=== PATIENT | female | born 1990 | race Caucasian/White ===

== ENCOUNTER 2017-04-16 13:11 | Emergency (ER) | payer MEDICAID, OTHER ==
[~2017-04-16] VITALS: Ht 165.1 cm; Wt 91.0 kg
[~2017-04-16 13:11] MED LIST: PREN0.01 PO
[2017-04-16 13:12] VITALS: BP 143/93; PULSE 90; RESP 20; TEMP 98.7; O2SAT 100
--- NOTE | 2017-04-16 14:19 | PD ---
Physical Exam Time Seen by Provider: 14:17 Narrative 26yo F c/o left sided chest pain and pressure since last night, off and on. Shooting pain to back. Denies pain is worse w/ activity and movement. + dizziness, nausea, lightheadedness, and heart palpitations. Denies SOB. Also c /o of epigastric pain on and off for the past few months. Denies fever. + nausea w/o vomiting of past few months. Patient seen in triage. Awaiting bed placement. VS reviewed. Data Data Last Documented VS Vital Signs Date Time Temp Pulse Resp B/P Pulse Ox O2 Delivery O2 Flow Rate FiO2 04/16/17 13:12 98.7 90 20 143/93 100 Room Air MDM Supervised Visit with DEBBIE: Cristina Monroe Apr 16, 2017 14:19
[2017-04-16] MEDS ORDERED: ONDANSETRON ODT 4 MG TAB PO ONE (15:15)
[2017-04-16] MEDS ORDERED: LIDOCAINE VISCOUS 2% SOLN 15 ML UDC PO ONE (15:15)
[2017-04-16] MEDS ORDERED: ALUMINUM/MAGNESIUM/SIMETH 30 ML CUP PO ONE (15:15)
[2017-04-16 15:16] VITALS: BP 131/76; PULSE 76; RESP 18; O2SAT 99
[2017-04-16 15:30] LABS: AUTOMATED NEUTROPHIL # 7.4 TH/MM3 (1.8-7.7); BASOPHIL % 0.5 % (0.0-2.0); EOSINOPHIL % 0.5 % (0.0-4.0); HEMATOCRIT 40.4 % (35.0-46.0); HEMO FLAGS DIFF FINAL; LYMPH % 19.4 % (9.0-44.0); LYMPHOCYTE # 1.9 TH/MM3 (1.0-4.8); MEAN CORPUSCULAR HEMOGLOBIN 30.5 PG (27.0-34.0); MEAN CORPUSCULAR HGB CONC 34.2 % (32.0-36.0); MONO % 4.5 % (0.0-8.0); NEUT % 75.1 % (16.0-70.0); PLATELET COUNT 300 TH/MM3 (150-450); RED BLOOD COUNT 4.53 MIL/MM3 (4.00-5.30); RED CELL DISTRIBUTION WIDTH 12.8 % (11.6-17.2); WHITE BLOOD COUNT 9.9 TH/MM3 (4.0-11.0)
[2017-04-16 15:38] LABS: APTT (PATIENT) 27.9 SEC (24.3-30.1); INTERNATIONAL NORMALIZED RATIO 0.9 RATIO; PROTHROMBIN TIME - PATIENT 10.2 SEC (9.8-11.6)
--- NOTE | 2017-04-16 15:42 | PD ---
HPI Chief Complaint: Chest Pain Time Seen by Provider: 15:07 Travel History International Travel<30 days: No Contact w/Intl Traveler<30days: No Traveled to known affect area: No History of Present Illness HPI 26-year-old female here with complaint of abdominal pain and chest pain. Over the last several months she has been having epigastric abdominal pain. This is burning in nature. Associated with nausea after food intake, most immediately. No vomiting. She denies any known history of GERD, ulcer, pancreatitis or hepatobiliary pathology. Starting yesterday evening she began to have a pressure in the epigastric region that radiates up into the chest, and slightly into the back. She does feel nauseous but, but again no vomiting. She denies any shortness of breath. No personal or familial history of cardiac disease at young age. No history of prolonged QT syndrome, WPW, Brugada. PFSH Past Medical History Medical History: Denies Significant Hx ?: Not LMP: 2 MOS AGO - ON DEPO SHOT Past Surgical History Eye Surgery: Yes (R[facility] EYE RETINA DETACHMENT AND CORNEA) Social History Alcohol Use: No Tobacco Use: No Substance Use: No Allergies-Medications (Allergen,Severity, Reaction): Coded Allergies: Shellfish (Verified Allergy, Severe, 01/04/11) *MDRO Multi-Drug Resistant Organism (Verified Allergy, 09/24/13) MRSA Uncoded Allergies: MYCINS (Allergy, Severe, REDNESS, 09/24/13) Reported Meds & Prescriptions Reported Meds & Active Scripts Active Reported Vit ( Plus) (Prenat Multivit/[employer]/Iron/Folic Ac) Tab 1 Tab PO DAILY Review of Systems Except as stated in HPI: all other systems reviewed are Neg Physical Exam Narrative GENERAL: Well-appearing female in no acute distress SKIN: Focused skin assessment warm/dry. HEAD: Normocephalic. EYES: No scleral icterus. No injection or drainage. ENT: Mucous membranes pink and moist. NECK: Supple CARDIOVASCULAR: Regular rate and rhythm. No murmur appreciated. RESPIRATORY: No accessory muscle use. Clear to auscultation. Breath sounds equal bilaterally. GASTROINTESTINAL: Abdomen soft, obese, minimal epigastric abdominal tenderness to palpation without rebound or guarding MUSCULOSKELETAL: No obvious deformities. No edema. NEUROLOGICAL: Awake and alert. Normal speech. PSYCHIATRIC: Appropriate mood and affect; insight and judgment normal. Data Data Last Documented VS Vital Signs Date Time Temp Pulse Resp B/P Pulse Ox O2 Delivery O2 Flow Rate FiO2 04/16/17 15:16 76 18 131/76 99 Room Air 04/16/17 13:12 98.7 Orders Electrocardiogram (04/16/17 ) Complete Blood Count With Diff (04/16/17 14:41) Comprehensive Metabolic Panel (04/16/17 14:41) Troponin I (04/16/17 14:41) Prothrombin Time / Inr (Pt) (04/16/17 14:41) Act Partial Throm Time (Ptt) (04/16/17 14:41) Al-Mag Hy-Si 40-40-4 Mg/Ml Liq (Mag-Al P (04/16/17 15:15) Lidocaine 2% Viscous (Xylocaine 2% Visco (04/16/17 15:15) Ondansetron Odt (Zofran Odt) (04/16/17 15:15) Lipase (04/16/17 14:41) Labs Laboratory Tests Test 04/16/17 14:40 White Blood Count 9.9 TH/MM3 Red Blood Count 4.53 MIL/MM3 Hemoglobin 13.8 GM/DL Hematocrit 40.4 % Mean Corpuscular Volume 89.0 FL Mean Corpuscular Hemoglobin 30.5 PG Mean Corpuscular Hemoglobin 34.2 % Concent Red Cell Distribution Width 12.8 % Platelet Count 300 TH/MM3 Mean Platelet Volume 8.6 FL Neutrophils (%) (Auto) 75.1 % Lymphocytes (%) (Auto) 19.4 % Monocytes (%) (Auto) 4.5 % Eosinophils (%) (Auto) 0.5 % Basophils (%) (Auto) 0.5 % Neutrophils # (Auto) 7.4 TH/MM3 Lymphocytes # (Auto) 1.9 TH/MM3 Monocytes # (Auto) 0.4 TH/MM3 Eosinophils # (Auto) 0.0 TH/MM3 Basophils # (Auto) 0.0 TH/MM3 CBC Comment DIFF FINAL Differential Comment Prothrombin Time 10.2 SEC Prothromb Time International 0.9 RATIO Ratio Activated Partial 27.9 SEC Thromboplast Time Sodium Level 141 MEQ/L Potassium Level 3.7 MEQ/L Chloride Level 107 MEQ/L Carbon Dioxide Level 24.9 MEQ/L Anion Gap 9 MEQ/L Blood Urea Nitrogen 8 MG/DL Creatinine 0.81 MG/DL Estimat Glomerular Filtration 86 ML/MIN Rate Random Glucose 75 MG/DL Calcium Level 8.7 MG/DL Total Bilirubin 0.3 MG/DL Aspartate Amino Transf 13 U/L (AST/SGOT) Alanine Aminotransferase 20 U/L (ALT/SGPT) Alkaline Phosphatase 35 U/L Troponin I LESS THAN 0.02 NG/ML Total Protein 7.7 GM/DL Albumin 3.9 GM/DL Lipase 116 U/L MDM Medical Decision Making Medical Screen Exam Complete: Yes Emergency Medical Condition: Yes Medical Record Reviewed: Yes Differential Diagnosis 26-year-old obese female here with several months of burning epigastric abdominal pain worse after food intake with nausea and now radiation up into the chest and low back. Suspect GERD, gastritis versus pancreatitis, hepatobiliary pathology and less likely cardiac etiology Narrative Course Patient placed on monitor, IV established and blood obtained. A twelve-lead EKG shows sinus rhythm with sinus arrhythmia but no notable ST or T-wave abnormalities and normal intervals. Patient given ODT Zofran and GI cocktail. CBC, CMP, lipase, troponin, coags obtained and unremarkable. We'll discharge to home with trial of prescription antacid for presumptive GERD Diagnosis Primary Impression: GERD (gastroesophageal reflux disease) Qualified Code: K21.9 - Gastroesophageal reflux disease without esophagitis Referrals: Primary Care Physician as needed Additional Instructions: Antacid as prescribed. Follow-up with primary care provider if symptoms persist and return to the ER for the warning signs discussed. Med/Other Pt SpecificInfo: Prescription(s) given Scripts Omeprazole 40 Mg Cap40 Mg PO DAILY #30 CAP Ref 0 Prov:Arlene Alvarado MD 04/16/17 Disposition: 01 DISCHARGE HOME Condition: Stable Arlene Alvarado MD Apr 16, 2017 15:42
[2017-04-16 15:49] LABS: ALT (GPT) 20 U/L (10-53); ANION GAP 9 MEQ/L (5-15); AST (GOT) 13 U/L (15-37); BICARBONATE 24.9 MEQ/L (21.0-32.0); BLOOD UREA NITROGEN 8 MG/DL (7-18); CHLORIDE 107 MEQ/L (98-107); GLOMERULAR FILTRATION RATE 86 ML/MIN (>89); POTASSIUM 3.7 MEQ/L (3.5-5.1); SODIUM (NA) 141 MEQ/L (136-145)
[2017-04-16 15:53] LABS: ALKALINE PHOSPHATASE 35 U/L (45-117); TOTAL BILIRUBIN ADULT 0.3 MG/DL (0.2-1.0)
[2017-04-16] MEDS ORDERED: OMEP40CA2 PO (15:57)
--- NOTE | 2017-04-17 17:13 | EKG ---
Date Performed: 04/16/2017 Time Performed: 14:31:22 PTAGE: 26 years EKG: Sinus rhythm WITH MARKED SINUS ARRHYTHMIA BORDERLINE ECG PREVIOUS TRACING : 09/17/2010 20.04 Compared to prior tracing no significant change DOCTOR: Jose Hemphill Interpretating Date/Time 04/17/2017 17:11:55
== END 2017-04-16 16:16 | disposition home or self-care (01) ==
LOC: NEPD 13:11
DX: K21.9 Gastro-esophageal reflux disease without esophagitis (principal); R10.13 Epigastric pain; R11.0 Nausea; E66.9 Obesity, unspecified; I49.8 Other specified cardiac arrhythmias
CPT/HCPCS: 80053; 83690; 84484; 85025; 85610; 85730; 93005; 99284

== ENCOUNTER 2018-12-13 09:53 | Inpatient (IN) ==
--- NOTE | 2018-12-13 10:34 | ED ---
History of Present Illness Primary Care Physician: No Primary Care Physician History of Present Illness: 28 year old female at 38 weeks and 2 days presents with elevated blood pressures. 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 Today when she went to her doctor her pressure was 132/ 110. She endorses a headache, lower extremity edema, blurry vision, Right upper quadrant pain, and nausea for the past two days. She has lower extremity edema for the duration of this . She denies any chest pain, fevers, or vomiting. She denies any loss of fluid, contractions, decreased movement, or vaginal bleeding. She denies any complications with this . Denies any history of high blood pressures. OBGYN history: 2 full term vaginal deliveries; states with her last she was told her pressures were starting to become elevated. No other complications with her . After one of her deliveries she had post hemorrhage. PMH: depression treated up until with [facility]int[employer] (she states she has no SI but has had thoughts of hopelessness and sadness; feels well supported and has someone she feels comfortable going to) SH: none Allergies: Bactrim (hives) Meds: Zantac 150mg BID Weeks Gestation:: 38 Para: 2 : 3 Review of Systems Constitutional: Denies fever(s) Eyes: Reports blurry vision Ears, Nose, Mouth, and Throat: Reports dizziness, Reports headache(s) Cardiovascular: Denies chest pain Respiratory: Denies cough Gastrointestinal: Reports abdominal pain, Reports nausea, Denies vomiting Genitourinary: Denies abnormal vaginal bleeding, Denies painful urination Musculoskeletal: Reports joint swelling Skin/Breast: Denies rash Neurologic: Reports dizziness, Reports headache(s) Psychiatric: Reports depression, Reports hopelessness, Denies thoughts of hurting/killing yourself Endocrine: Denies increased urination Hematologic/Lymphatic: Denies easy bleeding Allergic/Immunologic: Denies hives Medications and Allergies Allergies Allergy/AdvReac Type Severity Reaction Status Date / Time shellfish derived Allergy Severe Anaphylaxis Verified 12/13/18 12:54 MYCINS Allergy Severe REDNESS Uncoded 12/13/18 12:54 *MDRO Multi-Drug Resistant Allergy Unknown Hives Uncoded 12/13/18 12:54 Organism Home Medications Medication Instructions Recorded Confirmed Type vit,[id number] 1 tab PO DAILY 12/13/18 12/13/18 History [PNV 29-1] ranitidine HCl [Zantac] 300 mg PO DAILY 12/13/18 12/13/18 History Active Medications: Active Medications Calcium Gluconate (Calcium Gluconate Inj) 1 gm IV.PUSH PRN PRN PRN Reason: Magnesium toxicity Sodium Chloride (Ns Flush) 2 ml IV.FLUSH BID DEMETRA Sodium Chloride (Ns Flush) 2 ml IV.FLUSH PRN PRN PRN Reason: FLUSH AFTER USING IV ACCESS Exam Vital signs: Vital Signs 12/13/18 10:22 Temperature 99.0 F Narrative: GENERAL: Well-nourished, well-developed patient. SKIN: Warm and dry. HEAD: Normocephalic and atraumatic. EYES: No scleral icterus. No injection or drainage. ENT: No nasal drainage noted. Mucous membranes pink. Airway patent. NECK: Supple, trachea midline. No JVD. CARDIOVASCULAR: Regular rate and rhythm without murmurs, gallops, or rubs. RESPIRATORY: Breath sounds equal bilaterally. No accessory muscle use. BREASTS: Bilateral exam showed no masses , no retractions, no nipple discharge. ABDOMEN/GI: Abdomen soft, tenderness diffusely including RUQ and epigastric area, bowel sounds present, no rebound, no guarding Cervical exam by Dr. Iglesias: 1 cm/30%/-2 FHT's: Category: 1 Baseline: 155 Reactive: yes Variability:moderate Decels: none EXTREMITIES: No cyanosis. 2+ pitting edema. BACK: Nontender without obvious deformity. No CVA tenderness. NEUROLOGICAL: Awake and alert. Motor and sensory grossly within normal limits. Five out of 5 muscle strength in all muscle groups. Normal speech. 3+ patellar reflexes bilaterally Results - Labs CBC & Chem 7: 12/13/18 12:00 12/13/18 12:00 Assessment and Plan - Diagnosis (1) Elevated blood pressure affecting in third trimester, antepartum Code(s): O16.3 - Unspecified maternal hypertension, third trimester Status: Acute (2) Vision blurred Code(s): H53.8 - Other visual disturbances Status: Acute (3) Abdominal pain Code(s): R10.9 - Unspecified abdominal pain Status: Acute (4) Nausea Code(s): R11.0 - Nausea Status: Acute (5) Lower extremity edema Code(s): R60.0 - Localized edema Status: Acute - Plan 28-year-old female at 38 weeks and 2 days presents from clinic for elevated blood pressures. In clinic her blood pressures were 132/110. In ED triage pressure is 152/98 and heart rate in the 100s. Initially baby's heart rate in the 170s. Patient endorses headache, blurry vision, right upper quadrant pain, lower extremity edema, and nausea. 1) gestational hypertension and possible preeclampsia UA-negative protein Protein creatinine ratio 0.2 24-hour protein in 24-hour creatinine Uric acid pending BPs q. 5 minutes heart tracing category 1 reassuring; continue to monitor BPP: 05/29 BRENDAN 12.45 estimated weight 3765g CBC pending CMP pending Patient seen and discussed with Dr. Lawrence Update: BP elevated 168/113. -Will admit to Labor and delivery for induction of labor -Cytotec 25 mg -Mg 4 mg bolus; 2mg/hr Patient seen and discussed with Dr. Iglesias as well. - Attending Attestation Patient seen, examined, and discussed with resident team. I agree with assessment and management as documented and discussed with me. Pt presented to OB ED for evaluation of elevated blood pressures. BPP, labs ordered. BP monitored Q5 minutes. Significant elevation in BP noted, and pt admitted for preeclampsia. Consult placed to OB hospitalist, as pt high risk. Discharge Plan - Physicians Team Primary Care Provider: Primary Care Physici,No Attending Provider: Jeanine Lawrence
[2018-12-13 11:46] LABS: Bacteria,Urine Rare /hpf; Bilirubin,Urine Negative (Negative); Clarity,Urine Cloudy (Clear); Color,Urine Yellow (Yellw/Straw); Glucose,Urine (UA) Negative (Negative); Leukocyte Esterase,Urine Large (Negative); Mucus,Urine Few /lpf (Occasional); Nitrite,Urine Negative (Negative); Specific Gravity,Urine 1.021 (1.002-1.035); Squamous Epithelial Cell,Urine 20 /hpf (0-5)
[2018-12-13 11:54] LABS: Protein/Creatinine Ratio,Urine 0.2 (0.00-0.14); Total Protein,Urine Random 29.7 mg/dL (0-11.8)
[2018-12-13] MEDS ORDERED: Mag Sulf/Water 4 gm/100 ml 100 ML IV.SIG ONE (11:55)
[2018-12-13 12:24] LABS: Hematocrit 35.5 % (35.0-46.0); Mean Corpuscular HGB Conc 33.8 % (32.0-36.0); Mean Corpuscular Volume 85.8 fL (80.0-100.0); Mean Platelet Volume 7.7 fL (7.0-11.0); Platelet Count 344 th/mm3 (150-450); Red Blood Count 4.14 mil/mm3 (4.00-5.30); Red Cell Distribution Width 13.2 % (11.6-17.2); White Blood Count 11.8 th/mm3 (4.0-11.0)
[2018-12-13 12:49] LABS: Albumin 2.6 g/dL (3.4-5.0); Anion Gap 12 meq/L (5-15); Aspartate Aminotransferase 15 U/L (15-37); Blood Urea Nitrogen 8 mg/dL (7-18); Calcium 8.4 mg/dL (8.5-10.1); Carbon Dioxide 20.3 meq/L (21.0-32.0); Chloride 108 meq/L (98-107); Glomerular Filtration Rate Greater Than 89 mL/min (>89); Glucose,Random 72 mg/dL (74-106); Sodium 140 meq/L (136-145); Uric Acid 5.1 mg/dl (2.6-6.0)
[2018-12-13 12:52] LABS: Alanine Aminotransferase 7 U/L (10-53); Alkaline Phosphatase 91 U/L (45-117); Total Protein 6.8 g/dL (6.4-8.2)
--- NOTE | 2018-12-13 13:12 | P.HPOB ---
History of Present Illness Primary Care Physician: No Primary Care Physician History of Present Illness: 28 year old female at 38 weeks and 2 days presents with elevated blood pressures. 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 Today when she went to her doctor her pressure was 132/ 110. She endorses a headache, lower extremity edema, blurry vision, Right upper quadrant pain, and nausea for the past two days. She has lower extremity edema for the duration of this . She denies any chest pain, fevers, or vomiting. She denies any loss of fluid, contractions, decreased movement, or vaginal bleeding. She denies any complications with this . Denies any history of high blood pressures. OBGYN history: 2 full term vaginal deliveries; states with her last she was told her pressures were starting to become elevated. No other complications with her . After one of her deliveries she had post hemorrhage. PMH: depression treated up until with [facility] (she states she has no SI but has had thoughts of hopelessness and sadness; feels well supported and has someone she feels comfortable going to) SH: none Allergies: Bactrim (hives) Meds: Zantac 150mg BID Weeks Gestation:: 38 Para: 2 : 3 Review of Systems Constitutional: Denies fever(s) Eyes: Reports blurry vision Ears, Nose, Mouth, and Throat: Reports dizziness, Reports headache(s) Cardiovascular: Denies chest pain Respiratory: Denies cough Gastrointestinal: Reports abdominal pain, Reports nausea, Denies vomiting Genitourinary: Denies abnormal vaginal bleeding, Denies painful urination Musculoskeletal: Reports joint swelling Skin/Breast: Denies rash Neurologic: Reports dizziness, Reports headache(s) Psychiatric: Reports depression, Reports hopelessness, Denies thoughts of hurting/killing yourself Endocrine: Denies increased urination Hematologic/Lymphatic: Denies easy bleeding Allergic/Immunologic: Denies hives Medications and Allergies Active Medications: Active Medications Calcium Gluconate (Calcium Gluconate Inj) 1 gm IV.PUSH PRN PRN PRN Reason: Magnesium toxicity Sodium Chloride (Ns Flush) 2 ml IV.FLUSH BID DEMETRA Sodium Chloride (Ns Flush) 2 ml IV.FLUSH PRN PRN PRN Reason: FLUSH AFTER USING IV ACCESS Allergies Allergy/AdvReac Type Severity Reaction Status Date / Time shellfish derived Allergy Severe Unverified 06/05/17 14:44 MYCINS Allergy Severe REDNESS Uncoded 09/24/13 05:58 *MDRO Multi-Drug Resistant Allergy Unknown Uncoded 06/05/17 14:44 Organism Exam Vital signs: Vital Signs 12/13/18 10:22 Temperature 99.0 F Narrative: GENERAL: Well-nourished, well-developed patient. SKIN: Warm and dry. HEAD: Normocephalic and atraumatic. EYES: No scleral icterus. No injection or drainage. ENT: No nasal drainage noted. Mucous membranes pink. Airway patent. NECK: Supple, trachea midline. No JVD. CARDIOVASCULAR: Regular rate and rhythm without murmurs, gallops, or rubs. RESPIRATORY: Breath sounds equal bilaterally. No accessory muscle use. BREASTS: Bilateral exam showed no masses , no retractions, no nipple discharge. ABDOMEN/GI: Abdomen soft, tenderness diffusely including RUQ and epigastric area, bowel sounds present, no rebound, no guarding Cervical exam by Dr. Iglesias: 1 cm/30%/-2 FHT's: Category: 1 Baseline: 155 Reactive: yes Variability:moderate Decels: none EXTREMITIES: No cyanosis. 2+ pitting edema. BACK: Nontender without obvious deformity. No CVA tenderness. NEUROLOGICAL: Awake and alert. Motor and sensory grossly within normal limits. Five out of 5 muscle strength in all muscle groups. Normal speech. 3+ patellar reflexes bilaterally Assessment and Plan - Diagnosis (1) Elevated blood pressure affecting in third trimester, antepartum Code(s): O16.3 - Unspecified maternal hypertension, third trimester Status: Acute (2) Vision blurred Code(s): H53.8 - Other visual disturbances Status: Acute (3) Abdominal pain Code(s): R10.9 - Unspecified abdominal pain Status: Acute (4) Nausea Code(s): R11.0 - Nausea Status: Acute (5) Lower extremity edema Code(s): R60.0 - Localized edema Status: Acute - Plan 28-year-old female at 38 weeks and 2 days presents from clinic for elevated blood pressures. In clinic her blood pressures were 132/110. In ED triage pressure is 152/98 and heart rate in the 100s. Initially baby's heart rate in the 170s. Patient endorses headache, blurry vision, right upper quadrant pain, lower extremity edema, and nausea. 1) gestational hypertension and possible preeclampsia UA-negative protein Protein creatinine ratio 0.2 24-hour protein in 24-hour creatinine Uric acid pending BPs q. 5 minutes heart tracing category 1 reassuring; continue to monitor BPP: 05/29 BRENDAN 12.45 estimated weight 3765g CBC pending CMP pending Patient seen and discussed with Dr. Lawrence Update: BP elevated 168/113. -Will admit to Labor and delivery for induction of labor -Cytotec 25 mg -Mg 4 mg bolus; 2mg/hr Patient seen and discussed with Dr. Iglesias as well. Discharge Plan - Discharge Disposition Patient Disposition: ED Admit(ED Internal Use Only) - Physicians Team ED Provider: Jeanine Lawrence Primary Care Provider: Primary Care Tanisha Alva Documented By: Arti Covington MD (Nikki) R1 12/13/18 1031 Signed By: <Electronically signed by Arti MANCUSO (Nikki) R1 Adria> 12/13/18 1214 Patient seen, examined, and discussed with resident team. I agree with assessment and management as documented and discussed with me. Pt presented to OB ED for evaluation of elevated blood pressures. BPP, labs ordered. BP monitored Q5 minutes. Significant elevation in BP noted, and pt admitted for preeclampsia. Consult placed to OB hospitalist, as pt high risk.
[2018-12-13] MEDS: Mag Sulf/Water 40 gm/1000 ml 40 GM/1,000 ML BAG IV.CONT SCH (13:31)
[2018-12-13] MEDS: Acetaminophen 325 MG Tablet PO PRN ×2 (15:35→19:55)
[2018-12-13] MEDS ORDERED: Oxytocin 30 Units/500ml Premix 30 UNITS/500 ML BAG IV.SIG PRN (18:40)
--- NOTE | 2018-12-13 18:59 | P.OBLABOR ---
Subjective Interval history: 28 YO at 38.2 is laboring with Mag sulfate running and her BP has normalized. Cytotec per vagina was administered at 14:30 this afternoon. AROM performed at 16:30 with clear fluid. Cervical check at 18:40 reveals cervix is posterior 3/60/-2 with some change since last check. FHT with Cat 1 tracing with baseline 145, reactive, moderate, no decels. Objective Vital Signs: Vital Signs - 8 hr 12/13/18 13:10 12/13/18 13:15 12/13/18 13:21 Temperature 98.5 F Pulse Rate 89 90 87 Respiratory Rate 18 Blood Pressure 138/79 115/74 127/70 12/13/18 13:31 12/13/18 13:35 12/13/18 13:40 Temperature Pulse Rate 74 74 116 H Respiratory Rate Blood Pressure 110/72 12/13/18 13:55 12/13/18 14:15 12/13/18 14:25 Temperature Pulse Rate 93 H 106 H 92 H Respiratory Rate Blood Pressure 122/65 12/13/18 14:40 12/13/18 14:45 12/13/18 14:50 Temperature Pulse Rate 79 101 H 77 Respiratory Rate Blood Pressure 118/72 12/13/18 14:55 12/13/18 15:23 12/13/18 15:31 Temperature Pulse Rate 81 103 H 71 Respiratory Rate 18 Blood Pressure 116/67 116/71 12/13/18 15:35 12/13/18 15:45 12/13/18 15:50 Temperature Pulse Rate 83 82 77 Respiratory Rate Blood Pressure 12/13/18 15:55 12/13/18 16:10 12/13/18 16:45 Temperature Pulse Rate 76 71 75 Respiratory Rate Blood Pressure 127/75 115/68 12/13/18 16:55 12/13/18 17:05 12/13/18 17:10 Temperature Pulse Rate 86 75 78 Respiratory Rate Blood Pressure 135/65 12/13/18 17:15 12/13/18 17:18 12/13/18 17:20 Temperature 97.5 F L Pulse Rate 81 97 H Respiratory Rate 18 Blood Pressure 12/13/18 17:25 12/13/18 18:05 12/13/18 18:10 Temperature Pulse Rate 118 H 109 H 96 H Respiratory Rate Blood Pressure 128/78 12/13/18 18:15 12/13/18 18:25 Temperature Pulse Rate 111 H 98 H Respiratory Rate Blood Pressure Objective: Pelvic Exam: Cervix: posterior Dilatation: 3 Effacement: 60 Station: -2 Presentation: vtx Membranes: AROM 16:30 hours, clear fluid Uterine Contractions: occasional FHT's: Category: 1 Baseline: 145 Reactive: yes Variability: moderate Decels: absent Assessment and Plan - Diagnosis (1) Elevated blood pressure affecting in third trimester, antepartum Code(s): O16.3 - Unspecified maternal hypertension, third trimester Status: Acute (2) Vision blurred Code(s): H53.8 - Other visual disturbances Status: Acute (3) Abdominal pain Code(s): R10.9 - Unspecified abdominal pain Status: Acute (4) Nausea Code(s): R11.0 - Nausea Status: Acute (5) Lower extremity edema Code(s): R60.0 - Localized edema Status: Acute - Plan 28 YO at 38.2 is laboring with Mag sulfate running and her BP has normalized. Cytotec per vagina was administered at 14:30 this afternoon. AROM performed at 16:30 with clear fluid. Cervical check at 18:40 reveals cervix is posterior 3/60/-2 with some change since last check. FHT with Cat 1 tracing with baseline 145, reactive, moderate, no decels. Currently there are occasional CTX. Pt GBS swab is negative. Induction of Labor -Cytotec 25 mg per vagina once at 14:30 compete -Pitocin per protocol beginning 18:45 hours -LR IVF @ 125 mls/hr -GBS negative -Rubella pending -Cervical check q2-3h -Epidural PRN Pre-eclampsia -Mag sulfate IV per protocol -Tylenol 650 mg q4h PRN -BPP 10/[address] Iglesias
[2018-12-13 19:22] LABS: Rubella IgG Antibody 305.6 IU/mL (10.0-500.0)
--- NOTE | 2018-12-13 23:04 | P.OBLABOR ---
Subjective Interval history: 28 YO at 38.2 weeks on Pitocin mu/ml had IUPC placed at 10:48PM. IUPC had to be placed a second time due to first unit being suboptimal position. Pt is no longer exhibiting pre-eclamptic sxs: BPs are stabilized, mother and infant stable on monitor with Cat 1 tracing and no decels. Will keep Pitocin on for 4 more hours, and if no significant change, will observe uterine rest for 4-6 hours before restarting pitocin. Objective Vital Signs: Vital Signs - 8 hr 12/13/18 15:23 12/13/18 15:31 12/13/18 15:35 Temperature Pulse Rate 103 H 71 83 Respiratory Rate 18 Blood Pressure 116/67 116/71 12/13/18 15:45 12/13/18 15:50 12/13/18 15:55 Temperature Pulse Rate 82 77 76 Respiratory Rate Blood Pressure 127/75 12/13/18 16:10 12/13/18 16:45 12/13/18 16:55 Temperature Pulse Rate 71 75 86 Respiratory Rate Blood Pressure 115/68 12/13/18 17:05 12/13/18 17:10 12/13/18 17:15 Temperature Pulse Rate 75 78 81 Respiratory Rate Blood Pressure 135/65 12/13/18 17:18 12/13/18 17:20 12/13/18 17:25 Temperature 97.5 F L Pulse Rate 97 H 118 H Respiratory Rate 18 Blood Pressure 12/13/18 18:05 12/13/18 18:10 12/13/18 18:15 Temperature Pulse Rate 109 H 96 H 111 H Respiratory Rate Blood Pressure 128/78 12/13/18 18:25 12/13/18 18:40 12/13/18 18:45 Temperature Pulse Rate 98 H 98 H 106 H Respiratory Rate Blood Pressure 12/13/18 19:25 12/13/18 19:30 12/13/18 19:31 Temperature 97.9 F Pulse Rate 101 H 84 Respiratory Rate 18 Blood Pressure 147/86 H 12/13/18 19:54 12/13/18 20:25 12/13/18 21:15 Temperature Pulse Rate 114 H 90 Respiratory Rate 18 Blood Pressure 131/94 H 130/66 12/13/18 21:30 12/13/18 22:25 12/13/18 22:28 Temperature 97.8 F Pulse Rate 77 95 H Respiratory Rate Blood Pressure 143/72 H Objective: Pelvic Exam: Cervix: posterior Dilatation: 3 Effacement: 60 Station: -2 Presentation: vtx Membranes: AROM 14:30 hours with clear fluid 12/13/18 Uterine Contractions: occasional FHT's: Category: 1 Baseline: 145 Reactive: yes Variability: moderate Decels: absent Assessment and Plan - Diagnosis (1) Elevated blood pressure affecting in third trimester, antepartum Code(s): O16.3 - Unspecified maternal hypertension, third trimester Status: Acute (2) Vision blurred Code(s): H53.8 - Other visual disturbances Status: Acute (3) Abdominal pain Code(s): R10.9 - Unspecified abdominal pain Status: Acute (4) Nausea Code(s): R11.0 - Nausea Status: Acute (5) Lower extremity edema Code(s): R60.0 - Localized edema Status: Acute - Plan 28 YO at 38.2 is laboring with Mag sulfate running and her BP has normalized. Cytotec per vagina was administered at 14:30 this afternoon. AROM performed at 16:30 with clear fluid. Cervical check at 18:40 reveals cervix is posterior 3/60/-2 with some change since last check. FHT with Cat 1 tracing with baseline 145, reactive, moderate, no decels. Currently there are occasional CTX. Pt GBS swab is negative. Induction of Labor -Cytotec 25 mg per vagina once at 14:30 compete -Pitocin per protocol 11-23-29 beginning 18:45 hours; will stop at 02:00 on for uterine rest and re-start 06:30 if no significant change -LR IVF @ 125 mls/hr -GBS negative -Rubella pending -Cervical check q2-3h -Epidural PRN -IUPC placed 22:48 hours Pre-eclampsia -Mag sulfate IV per protocol -Tylenol 650 mg q4h PRN -BPP 10/[address] Iglesias
[2018-12-14] MEDS: Acetaminophen 325 MG Tablet PO PRN ×2 (06:40→08:39)
--- NOTE | 2018-12-14 07:58 | P.OBLABOR ---
Subjective Interval history: 28 YO at 38.3 weeks on Pitocin 4 mu/ml restarted around 06:30 this morning after a break at 02:00. Admitted yesterday for IOL due to pre-eclampsia and elevated BPs with Cytotec per vagina at 12:30, AROM 14:30, Pitocin 18:45 yesterday and IUPC placed at 22:48. Mag sulfate started upon admission as well. Today pt is complaining of chest pressure and SOB and ongoing VIRK that is global and she feels is worsening with new tooth pain. Reflexes are normal. Pt is no longer exhibiting pre-eclamptic sxs: BPs are stabilized, mother and infant are stable on monitor with Cat 1 tracing and no decels. Pt is breathing comfortably on RA with no increased WOB with O2 sats >98%. Objective Vital Signs: Vital Signs - 8 hr 12/14/18 00:10 12/14/18 00:53 12/14/18 01:50 Temperature 97.4 F L Pulse Rate 95 H 91 H Respiratory Rate 18 Blood Pressure 130/78 12/14/18 01:55 12/14/18 02:00 12/14/18 03:20 Temperature Pulse Rate 84 77 Respiratory Rate 18 Blood Pressure 117/69 126/57 L 12/14/18 03:23 12/14/18 03:25 12/14/18 05:30 Temperature 97.8 F 97.9 F Pulse Rate 111 H 75 Respiratory Rate 18 18 Blood Pressure 113/62 12/14/18 05:55 12/14/18 06:44 12/14/18 07:25 Temperature Pulse Rate 88 98 H 85 Respiratory Rate 18 Blood Pressure 134/66 Objective: Pelvic Exam: Cervix: posterior Dilatation: 3-4 Effacement: 70 Station: -2 Presentation: vtx Membranes: ARM 14:30 on 12/13/18 with clear fluid Uterine Contractions: q3-4 minutes FHT's: Category: 1 Baseline: 145 Reactive: yes Variability: moderate Decels: absent Assessment and Plan - Diagnosis (1) Elevated blood pressure affecting in third trimester, antepartum Code(s): O16.3 - Unspecified maternal hypertension, third trimester Status: Acute (2) Vision blurred Code(s): H53.8 - Other visual disturbances Status: Acute (3) Abdominal pain Code(s): R10.9 - Unspecified abdominal pain Status: Acute (4) Nausea Code(s): R11.0 - Nausea Status: Acute (5) Lower extremity edema Code(s): R60.0 - Localized edema Status: Acute - Plan 28 YO at 38.2 who presented with new pre-eclampsia is laboring with Mag sulfate and her BP has normalized. Cytotec per vagina was administered at 14:30 this afternoon. AROM performed at 16:30 with clear fluid. Cervix is 3-4/70/-2 with little change since last check. FHT with Cat 1 tracing with baseline 145, reactive, moderate, no decels. CTX q3-4 minutes. Pt GBS swab is negative. Induction of Labor -Cytotec 25 mg per vagina once 14:30 compete -Pitocin per protocol 11-23-29 beginning 18:45 hours; will stop at 02:00 on for uterine rest and re-start 06:30 if no significant change -LR IVF @ 125 mls/hr -GBS negative -Rubella pending -Cervical check q2-3h -Epidural PRN -IUPC placed 22:48 hours Pre-eclampsia -Mag sulfate IV per protocol -Neuro checks q4h -Bed rest -Tylenol 650 mg q4h PRN -BPP 10/10 on 12/13/18 -Mag level this morning Headache, teeth pain, chest pressure -Fentanyl 50 mcg IV once -Pt states pain and pressure easing following fentanyl admin Prolonged rupture of membranes -PCN G 5 million units IV once -PCN G 2.5 million units in [address] Iglesias
[2018-12-14] MEDS ORDERED: Penicillin G Potassium Inj 5,000,000 UNIT in Sodium Chloride 0.9% Inj 100 ML IV.SIG ONE (08:00)
[2018-12-14] MEDS ORDERED: fentaNYL Citrate Inj 100 MCG/2 ML Ampul IV.PUSH ONE ×2 (08:00→12:39)
[2018-12-14] MEDS: Mag Sulf/Water 40 gm/1000 ml 40 GM/1,000 ML BAG IV.CONT SCH (08:44)
[2018-12-14] MEDS ORDERED: Citric Acid/Sodium Citrate Liq 30 ML UDC PO ONE (09:30)
[2018-12-14] MEDS: Prenatal Vit/Ca/Iron/Folic Acid Tablet PO SCH (09:39)
[2018-12-14] MEDS: Famotidine PF Inj 20 MG/2 ML Vial IV.SIG SCH (11:08)
--- NOTE | 2018-12-14 11:21 | P.PN ---
Subjective Interval history: [facility] Attending THe patient is a 28 year-old with IUP at 38.3 being induced for preeclampsia. We discussed the goal of a healthy and healthy mother. We discussed that our primary goal is a vaginal delivery but but that sometimes a delivery is indicated. We discussed the risks of vaginal delivery including lacerations, bleeding/ hemorrhage, and shoulder dystocia. We discussed that shoulder dystocia is unpredictable but she has no indications to recommend delivery. She had an ultrasound yesterday that showed EFW 8 pounds, 5 ounces. Her GDM testing was negative. We discussed the risks of shoulder dystocia that include but are not limited to a approximately 3-5% risk of permanent and irreversible neurological injury. We discussed the indications for section including maternal indications, indications, and emergent indications. The risks, benefits, and alternatives of section were discussed with the patient. The risks include but are not limited to pain, infection, bleeding, injury to other organs like the bladder/bowel/nerves/vessels, injury to the baby, need for repeat operation, need for hysterectomy, need for blood transfusion, wound infection or breakdown , and other possible risks. All the patient's questions were answered and consent had previously been signed. She desires to proceed with a vaginal delivery. Physical Exam Vital signs: Vital Signs 12/13/18 13:10 12/13/18 13:15 12/13/18 13:21 Temperature 98.5 F Pulse Rate 89 90 87 Respiratory Rate 18 Blood Pressure 138/79 115/74 127/70 12/13/18 13:31 12/13/18 13:35 12/13/18 13:40 Temperature Pulse Rate 74 74 116 H Respiratory Rate Blood Pressure 110/72 12/13/18 13:55 12/13/18 14:15 12/13/18 14:25 Temperature Pulse Rate 93 H 106 H 92 H Respiratory Rate Blood Pressure 122/65 12/13/18 14:40 12/13/18 14:45 12/13/18 14:50 Temperature Pulse Rate 79 101 H 77 Respiratory Rate Blood Pressure 118/72 12/13/18 14:55 12/13/18 15:23 12/13/18 15:31 Temperature Pulse Rate 81 103 H 71 Respiratory Rate 18 Blood Pressure 116/67 116/71 12/13/18 15:35 12/13/18 15:45 12/13/18 15:50 Temperature Pulse Rate 83 82 77 Respiratory Rate Blood Pressure 12/13/18 15:55 12/13/18 16:10 12/13/18 16:45 Temperature Pulse Rate 76 71 75 Respiratory Rate Blood Pressure 127/75 115/68 12/13/18 16:55 12/13/18 17:05 12/13/18 17:10 Temperature Pulse Rate 86 75 78 Respiratory Rate Blood Pressure 135/65 12/13/18 17:15 12/13/18 17:18 12/13/18 17:20 Temperature 97.5 F L Pulse Rate 81 97 H Respiratory Rate 18 Blood Pressure 12/13/18 17:25 12/13/18 18:05 12/13/18 18:10 Temperature Pulse Rate 118 H 109 H 96 H Respiratory Rate Blood Pressure 128/78 12/13/18 18:15 12/13/18 18:25 12/13/18 18:40 Temperature Pulse Rate 111 H 98 H 98 H Respiratory Rate Blood Pressure 12/13/18 18:45 12/13/18 19:25 12/13/18 19:30 Temperature 97.9 F Pulse Rate 106 H 101 H Respiratory Rate 18 Blood Pressure 12/13/18 19:31 12/13/18 19:54 12/13/18 20:25 Temperature Pulse Rate 84 114 H Respiratory Rate Blood Pressure 147/86 H 131/94 H 12/13/18 21:15 12/13/18 21:30 12/13/18 22:25 Temperature 97.8 F Pulse Rate 90 77 Respiratory Rate 18 Blood Pressure 130/66 12/13/18 22:28 12/13/18 23:40 12/13/18 23:45 Temperature Pulse Rate 95 H 88 98 H Respiratory Rate Blood Pressure 143/72 H 123/75 12/14/18 00:10 12/14/18 00:53 12/14/18 01:50 Temperature 97.4 F L Pulse Rate 95 H 91 H Respiratory Rate 18 Blood Pressure 130/78 12/14/18 01:55 12/14/18 02:00 12/14/18 03:20 Temperature Pulse Rate 84 77 Respiratory Rate 18 Blood Pressure 117/69 126/57 L 12/14/18 03:23 12/14/18 03:25 12/14/18 05:30 Temperature 97.8 F 97.9 F Pulse Rate 111 H 75 Respiratory Rate 18 18 Blood Pressure 113/62 12/14/18 05:55 12/14/18 06:44 12/14/18 07:25 Temperature Pulse Rate 88 98 H 85 Respiratory Rate 18 Blood Pressure 134/66 12/14/18 07:50 12/14/18 07:53 12/14/18 08:30 Temperature Pulse Rate 86 Respiratory Rate 22 20 Blood Pressure 121/75 12/14/18 09:15 12/14/18 09:38 12/14/18 10:11 Temperature Pulse Rate 90 83 Respiratory Rate 20 10 L 20 Blood Pressure 138/83 128/67 12/14/18 11:15 Temperature Pulse Rate 83 Respiratory Rate 18 Blood Pressure 121/70 Intake & Output 12/13/18 12/14/18 12/14/18 18:59 06:59 18:59 Intake Total 1000 / 1000 1000 / 1000 Balance 1000 / 1000 1000 / 1000 Weight 120.202 kg Intake: IV 1000 / 1000 1000 / 1000 LR 1000 mL Inj 1,000 ML @ 75 1000 / 1000 mls/hr IV.CONT .[id number] [facility] Rx# :[id number] Magnesium Sulfate/Water 40 gm/ 1000 / 1000 1000 ml Premix 40 gm In 1,000 ml @ 2 GM/HR 50 mls/hr IV.CONT Q24H [facility] Rx#:[id number] Other: Weight On Admission 120.202 kg Results - Labs CBC & Chem 7: 12/13/18 12:00 12/13/18 12:00 Laboratory Results - last 24 hr 12/13/18 12/13/18 12/13/18 10:23 10:23 12:00 WBC 11.8 H RBC 4.14 Hgb 12.0 Hct 35.5 MCV 85.8 MCH 29.0 MCHC 33.8 RDW 13.2 Plt Count 344 MPV 7.7 Sodium Potassium Chloride Carbon Dioxide Anion Gap BUN Creatinine Estimated GFR Random Glucose Uric Acid Calcium Magnesium Total Bilirubin AST ALT Alkaline Phosphatase Troponin I Total Protein Albumin Urine Color Yellow Urine Clarity Cloudy H Urine pH 6.0 Ur Specific [place] 1.021 Urine Protein Negative Urine Glucose (UA) Negative Urine Ketones Negative Urine Occult Blood Negative Urine Nitrate Negative Urine Bilirubin Negative Urine Urobilinogen Less than 2 Ur Leukocyte Esterase Large H Urine RBC 3 Urine WBC 2 Ur Squamous Epith Cells 20 Urine Bacteria Rare H Urine Mucus Few H Micro UA Comment Culture not ind Ur Microscopic Review Not Reportable Urine Culture Comments Culture not ind Ur Random Creatinine 147 U Random Total Protein 29.7 H Protein/Creatinin Ratio 0.20 H Nasal Screen MRSA (PCR) Rubella Immunity Screen Rubella Ab, Quant Group B Strep (PCR) 12/13/18 12/13/18 12/13/18 12:00 14:20 14:20 WBC RBC Hgb Hct MCV MCH MCHC RDW Plt Count MPV Sodium 140 Potassium 4.0 Chloride 108 H Carbon Dioxide 20.3 L Anion Gap 12 BUN 8 Creatinine 0.65 Estimated GFR Greater than 89 Random Glucose 72 L Uric Acid 5.1 Calcium 8.4 L Magnesium Total Bilirubin 0.2 AST 15 ALT 7 L Alkaline Phosphatase 91 Troponin I Total Protein 6.8 Albumin 2.6 L Urine Color Urine Clarity Urine pH Ur Specific [place] Urine Protein Urine Glucose (UA) Urine Ketones Urine Occult Blood Urine Nitrate Urine Bilirubin Urine Urobilinogen Ur Leukocyte Esterase Urine RBC Urine WBC Ur Squamous Epith Cells Urine Bacteria Urine Mucus Micro UA Comment Ur Microscopic Review Urine Culture Comments Ur Random Creatinine U Random Total Protein Protein/Creatinin Ratio Nasal Screen MRSA (PCR) Not detected Rubella Immunity Screen Rubella Ab, Quant Group B Strep (PCR) Negative 12/13/18 12/14/18 12/14/18 17:48 07:45 09:15 WBC RBC Hgb Hct MCV MCH MCHC RDW Plt Count MPV Sodium Potassium Chloride Carbon Dioxide Anion Gap BUN Creatinine Estimated GFR Random Glucose Uric Acid Calcium Magnesium 5.4 H Total Bilirubin AST ALT Alkaline Phosphatase Troponin I Less than 0.02 L Total Protein Albumin Urine Color Urine Clarity Urine pH Ur Specific [place] Urine Protein Urine Glucose (UA) Urine Ketones Urine Occult Blood Urine Nitrate Urine Bilirubin Urine Urobilinogen Ur Leukocyte Esterase Urine RBC Urine WBC Ur Squamous Epith Cells Urine Bacteria Urine Mucus Micro UA Comment Ur Microscopic Review Urine Culture Comments Ur Random Creatinine U Random Total Protein Protein/Creatinin Ratio Nasal Screen MRSA (PCR) Rubella Immunity Screen Immune Rubella Ab, Quant 305.6 Group B Strep (PCR)
[2018-12-14] MEDS ORDERED: Penicillin G Potassium Inj 2,500,000 UNIT in Sodium Chlor 0.9% Inj 100 ML IV.SIG SCH (12:00)
[2018-12-14] MEDS ORDERED: fentaNYL 2MCG-Bupiv 0.125% Epi 150 ML EPIDURAL ONE (13:13)
[2018-12-14] MEDS ORDERED: Sodium Chlor 0.9% Inj 10 ML ONE (13:59)
[2018-12-14] MEDS ORDERED: Lidocaaine 1.5%/Epinephrine 1:200,000 PF Inj 5 ML Amp ONE (13:59)
[2018-12-14] MEDS ORDERED: Lidocaine PF 1% Inj 5 ML Vial ONE (13:59)
[2018-12-14] MEDS ORDERED: fentaNYL Citrate Inj 100 MCG/2 ML Ampul ONE (14:00)
--- NOTE | 2018-12-14 14:55 | P.PN ---
Subjective Interval history: [facility] Patient now on oxytocin of 14, contractions every 2 minutes so will decrease oxytocin, feeling increased contractions, SVE 3-4/80/-3, caput noted, adequate contractions. FHR with FHR in 170s with moderate long-term variability, good accels, and no decels. Will monitor closely for chorioamnionitis as now ROM x24 hours. IVF given, and will Rx IV Tylenol. Discussed delivery with patient as little no significant increase in dilation. Will recheck in 1 hour and if no significant cervical change will proceed with delivery unless indicated sooner. Patient in agreement. Physical Exam Vital signs: Vital Signs 12/13/18 14:55 12/13/18 15:23 12/13/18 15:31 Temperature Pulse Rate 81 103 H 71 Respiratory Rate 18 Blood Pressure 116/67 116/71 12/13/18 15:35 12/13/18 15:45 12/13/18 15:50 Temperature Pulse Rate 83 82 77 Respiratory Rate Blood Pressure 12/13/18 15:55 12/13/18 16:10 12/13/18 16:45 Temperature Pulse Rate 76 71 75 Respiratory Rate Blood Pressure 127/75 115/68 12/13/18 16:55 12/13/18 17:05 12/13/18 17:10 Temperature Pulse Rate 86 75 78 Respiratory Rate Blood Pressure 135/65 12/13/18 17:15 12/13/18 17:18 12/13/18 17:20 Temperature 97.5 F L Pulse Rate 81 97 H Respiratory Rate 18 Blood Pressure 12/13/18 17:25 12/13/18 18:05 12/13/18 18:10 Temperature Pulse Rate 118 H 109 H 96 H Respiratory Rate Blood Pressure 128/78 12/13/18 18:15 12/13/18 18:25 12/13/18 18:40 Temperature Pulse Rate 111 H 98 H 98 H Respiratory Rate Blood Pressure 12/13/18 18:45 12/13/18 19:25 12/13/18 19:30 Temperature 97.9 F Pulse Rate 106 H 101 H Respiratory Rate 18 Blood Pressure 12/13/18 19:31 12/13/18 19:54 12/13/18 20:25 Temperature Pulse Rate 84 114 H Respiratory Rate Blood Pressure 147/86 H 131/94 H 12/13/18 21:15 12/13/18 21:30 12/13/18 22:25 Temperature 97.8 F Pulse Rate 90 77 Respiratory Rate 18 Blood Pressure 130/66 12/13/18 22:28 12/13/18 23:40 12/13/18 23:45 Temperature Pulse Rate 95 H 88 98 H Respiratory Rate Blood Pressure 143/72 H 123/75 12/14/18 00:10 12/14/18 00:53 12/14/18 01:50 Temperature 97.4 F L Pulse Rate 95 H 91 H Respiratory Rate 18 Blood Pressure 130/78 12/14/18 01:55 12/14/18 02:00 12/14/18 03:20 Temperature Pulse Rate 84 77 Respiratory Rate 18 Blood Pressure 117/69 126/57 L 12/14/18 03:23 12/14/18 03:25 12/14/18 05:30 Temperature 97.8 F 97.9 F Pulse Rate 111 H 75 Respiratory Rate 18 18 Blood Pressure 113/62 12/14/18 05:55 12/14/18 06:44 12/14/18 07:25 Temperature Pulse Rate 88 98 H 85 Respiratory Rate 18 Blood Pressure 134/66 12/14/18 07:50 12/14/18 07:53 12/14/18 08:30 Temperature Pulse Rate 86 Respiratory Rate 22 20 Blood Pressure 121/75 12/14/18 09:15 12/14/18 09:38 12/14/18 10:11 Temperature Pulse Rate 90 83 Respiratory Rate 20 10 L 20 Blood Pressure 138/83 128/67 12/14/18 11:15 12/14/18 12:10 12/14/18 12:13 Temperature 97.6 F Pulse Rate 83 88 Respiratory Rate 18 18 Blood Pressure 121/70 122/67 12/14/18 13:10 12/14/18 13:26 12/14/18 13:30 Temperature Pulse Rate 91 H 105 H Respiratory Rate 18 22 Blood Pressure 135/74 126/82 12/14/18 13:40 12/14/18 13:46 12/14/18 14:00 Temperature 99.5 F Pulse Rate 99 H 88 Respiratory Rate Blood Pressure 121/81 104/62 12/14/18 14:01 12/14/18 14:15 12/14/18 14:35 Temperature Pulse Rate 88 133 H 96 H Respiratory Rate 18 Blood Pressure 98/51 L 94/62 L 60/20 L Intake & Output 12/13/18 12/14/18 12/14/18 18:59 06:59 18:59 Intake Total 1000 / 1000 1000 / 1000 Balance 1000 / 1000 1000 / 1000 Weight 120.202 kg Intake: IV 1000 / 1000 1000 / 1000 LR 1000 mL Inj 1,000 ML @ 75 1000 / 1000 mls/hr IV.CONT .[id number] [facility] Rx# :[id number] Magnesium Sulfate/Water 40 gm/ 1000 / 1000 1000 ml Premix 40 gm In 1,000 ml @ 2 GM/HR 50 mls/hr IV.CONT Q24H [facility] Rx#:[id number] Other: Weight On Admission 120.202 kg Results - Labs CBC & Chem 7: 12/13/18 12:00 12/13/18 12:00 Laboratory Results - last 24 hr 12/13/18 12/13/18 12/13/18 14:20 14:20 17:48 Magnesium Troponin I Nasal Screen MRSA (PCR) Not detected Rubella Immunity Screen Immune Rubella Ab, Quant 305.6 Group B Strep (PCR) Negative 12/14/18 12/14/18 07:45 09:15 Magnesium 5.4 H Troponin I Less than 0.02 L Nasal Screen MRSA (PCR) Rubella Immunity Screen Rubella Ab, Quant Group B Strep (PCR) Microbiology 12/13/18 14:20 Genital - Genital Region Group B Streptococcus Screen ([facility]) - Preliminary Results Pending
[2018-12-14] MEDS ORDERED: fentaNYL 2MCG-Bupiv 0.125% Epi 150 ML EPIDURAL PRN (15:36)
[2018-12-14] MEDS ORDERED: fentaNYL Citrate Inj 100 MCG/2 ML Ampul EPIDURAL ONE (15:36)
[2018-12-14] MEDS ORDERED: Citric Acid/Sodium Citrate Liq 30 ML UDC PO SCH (15:45)
[2018-12-14] MEDS ORDERED: Morphine Sulfate PF Inj 5 MG/10 ML Ampul ONE (15:46)
[2018-12-14] MEDS ORDERED: CEFAZOLIN ONE (15:53)
[2018-12-14] MEDS ORDERED: Diphtheria/Tetanus/Pertussis Vaccine Inj 0.5 ML Syringe IM ONE (16:00)
[2018-12-14] MEDS ORDERED: ceFAZolin Inj 3,000 MG in Sodium Chlor 0.9% Inj 100 ML IV.SIG SCH (16:00)
[2018-12-14] MEDS ORDERED: Measles/Mumps/Rubella Vaccine Inj 0.5 ML Vial SQ ONE (16:00)
[2018-12-14] MEDS ORDERED: Sodium Chlor 0.9% Inj 100 ML ONE (16:04)
--- NOTE | 2018-12-14 16:04 | P.PN ---
Subjective Interval history: OB[facility] See note of 1607 Physical Exam Vital signs: Vital Signs 12/13/18 16:10 12/13/18 16:45 12/13/18 16:55 Temperature Pulse Rate 71 75 86 Respiratory Rate Blood Pressure 115/68 12/13/18 17:05 12/13/18 17:10 12/13/18 17:15 Temperature Pulse Rate 75 78 81 Respiratory Rate Blood Pressure 135/65 12/13/18 17:18 12/13/18 17:20 12/13/18 17:25 Temperature 97.5 F L Pulse Rate 97 H 118 H Respiratory Rate 18 Blood Pressure 12/13/18 18:05 12/13/18 18:10 12/13/18 18:15 Temperature Pulse Rate 109 H 96 H 111 H Respiratory Rate Blood Pressure 128/78 12/13/18 18:25 12/13/18 18:40 12/13/18 18:45 Temperature Pulse Rate 98 H 98 H 106 H Respiratory Rate Blood Pressure 12/13/18 19:25 12/13/18 19:30 12/13/18 19:31 Temperature 97.9 F Pulse Rate 101 H 84 Respiratory Rate 18 Blood Pressure 147/86 H 12/13/18 19:54 12/13/18 20:25 12/13/18 21:15 Temperature Pulse Rate 114 H 90 Respiratory Rate 18 Blood Pressure 131/94 H 130/66 12/13/18 21:30 12/13/18 22:25 12/13/18 22:28 Temperature 97.8 F Pulse Rate 77 95 H Respiratory Rate Blood Pressure 143/72 H 12/13/18 23:40 12/13/18 23:45 12/14/18 00:10 Temperature Pulse Rate 88 98 H 95 H Respiratory Rate Blood Pressure 123/75 130/78 12/14/18 00:53 12/14/18 01:50 12/14/18 01:55 Temperature 97.4 F L Pulse Rate 91 H 84 Respiratory Rate 18 Blood Pressure 117/69 12/14/18 02:00 12/14/18 03:20 12/14/18 03:23 Temperature 97.8 F Pulse Rate 77 Respiratory Rate 18 18 Blood Pressure 126/57 L 12/14/18 03:25 12/14/18 05:30 12/14/18 05:55 Temperature 97.9 F Pulse Rate 111 H 75 88 Respiratory Rate 18 Blood Pressure 113/62 12/14/18 06:44 12/14/18 07:25 12/14/18 07:50 Temperature Pulse Rate 98 H 85 86 Respiratory Rate 18 Blood Pressure 134/66 121/75 12/14/18 07:53 12/14/18 08:30 12/14/18 09:15 Temperature Pulse Rate 90 Respiratory Rate 22 20 20 Blood Pressure 138/83 12/14/18 09:38 12/14/18 10:11 12/14/18 11:15 Temperature Pulse Rate 83 83 Respiratory Rate 10 L 20 18 Blood Pressure 128/67 121/70 12/14/18 12:10 12/14/18 12:13 12/14/18 13:10 Temperature 97.6 F Pulse Rate 88 91 H Respiratory Rate 18 18 Blood Pressure 122/67 135/74 12/14/18 13:26 12/14/18 13:30 12/14/18 13:40 Temperature Pulse Rate 105 H 99 H Respiratory Rate 22 Blood Pressure 126/82 121/81 12/14/18 13:46 12/14/18 14:00 12/14/18 14:01 Temperature 99.5 F Pulse Rate 88 88 Respiratory Rate Blood Pressure 104/62 98/51 L 12/14/18 14:15 12/14/18 14:35 12/14/18 15:28 Temperature 103.1 F H Pulse Rate 133 H 96 H 153 H Respiratory Rate 18 20 Blood Pressure 94/62 L 60/20 L 107/31 L Intake & Output 12/13/18 12/14/18 12/14/18 18:59 06:59 18:59 Intake Total 1000 / 1000 1000 / 1000 Balance 1000 / 1000 1000 / 1000 Weight 120.202 kg Intake: IV 1000 / 1000 1000 / 1000 LR 1000 mL Inj 1,000 ML @ 75 1000 / 1000 mls/hr IV.CONT .[id number] [facility] Rx# :[id number] Magnesium Sulfate/Water 40 gm/ 1000 / 1000 1000 ml Premix 40 gm In 1,000 ml @ 2 GM/HR 50 mls/hr IV.CONT Q24H [facility] Rx#:[id number] Other: Weight On Admission 120.202 kg Results - Labs CBC & Chem 7: 12/13/18 12:00 12/13/18 12:00 Laboratory Results - last 24 hr 12/13/18 12/13/18 12/13/18 14:20 14:20 17:48 Magnesium Troponin I Nasal Screen MRSA (PCR) Not detected Rubella Immunity Screen Immune Rubella Ab, Quant 305.6 Group B Strep (PCR) Negative 12/14/18 12/14/18 07:45 09:15 Magnesium 5.4 H Troponin I Less than 0.02 L Nasal Screen MRSA (PCR) Rubella Immunity Screen Rubella Ab, Quant Group B Strep (PCR) Microbiology 12/13/18 14:20 Genital - Genital Region Group B Streptococcus Screen ([facility]) - Preliminary Results Pending
--- NOTE | 2018-12-14 16:13 | P.PN ---
Subjective Interval history: OBHG Patient proceeded to develop a temperature of, so IV tylenol administered, clindamycin 900 mg IV ordered, gentamicin 5 mg/kg ordered, and ampicillin 2g ordered. The oxytocin was discontinued as it became clear with the chorioamnionitis that a delivery was indicated as the patient is remote from delivery, has not made significant cervical change, and has been induced for 1-1/2 days. We also discontinue the magnesium sulfate. She has not made significant cervical change despite adequate contractions. A few late appearing decelerations were noted which resolved with IV fluids, oxygen, and repositioning. Unable to give terbutaline due to maternal HR. Cooling blanket ordered. Have prepared for hemorrhage as patient has several risk factors including her history of hemorrhage, prolonged labor, prolonged oxytocin administration, on oxytocin, chorioamnionitis, magnesium sulfate, induction of labor, preeclampsia, and an estimated weight of nearly 8-1/2 pounds. Due to this the decision was made to ensure antibiotics were administered as quickly as possible. Tranexamic acid 1 g was administered prophylactically due to her high risk of a significant hemorrhage as studies have shown this to decrease estimated blood loss during delivery. Also discussed with the patient that she does have an increased risk of hysterectomy and/or other additional procedures due to these risk factors. All the patient and her family's questions were answered and are in agreement with proceeding. Physical Exam Vital signs: Vital Signs 12/13/18 16:10 12/13/18 16:45 12/13/18 16:55 Temperature Pulse Rate 71 75 86 Respiratory Rate Blood Pressure 115/68 12/13/18 17:05 12/13/18 17:10 12/13/18 17:15 Temperature Pulse Rate 75 78 81 Respiratory Rate Blood Pressure 135/65 12/13/18 17:18 12/13/18 17:20 12/13/18 17:25 Temperature 97.5 F L Pulse Rate 97 H 118 H Respiratory Rate 18 Blood Pressure 12/13/18 18:05 12/13/18 18:10 12/13/18 18:15 Temperature Pulse Rate 109 H 96 H 111 H Respiratory Rate Blood Pressure 128/78 12/13/18 18:25 12/13/18 18:40 12/13/18 18:45 Temperature Pulse Rate 98 H 98 H 106 H Respiratory Rate Blood Pressure 12/13/18 19:25 12/13/18 19:30 12/13/18 19:31 Temperature 97.9 F Pulse Rate 101 H 84 Respiratory Rate 18 Blood Pressure 147/86 H 12/13/18 19:54 12/13/18 20:25 12/13/18 21:15 Temperature Pulse Rate 114 H 90 Respiratory Rate 18 Blood Pressure 131/94 H 130/66 12/13/18 21:30 12/13/18 22:25 12/13/18 22:28 Temperature 97.8 F Pulse Rate 77 95 H Respiratory Rate Blood Pressure 143/72 H 12/13/18 23:40 12/13/18 23:45 12/14/18 00:10 Temperature Pulse Rate 88 98 H 95 H Respiratory Rate Blood Pressure 123/75 130/78 12/14/18 00:53 12/14/18 01:50 12/14/18 01:55 Temperature 97.4 F L Pulse Rate 91 H 84 Respiratory Rate 18 Blood Pressure 117/69 12/14/18 02:00 12/14/18 03:20 12/14/18 03:23 Temperature 97.8 F Pulse Rate 77 Respiratory Rate 18 18 Blood Pressure 126/57 L 12/14/18 03:25 12/14/18 05:30 12/14/18 05:55 Temperature 97.9 F Pulse Rate 111 H 75 88 Respiratory Rate 18 Blood Pressure 113/62 12/14/18 06:44 12/14/18 07:25 12/14/18 07:50 Temperature Pulse Rate 98 H 85 86 Respiratory Rate 18 Blood Pressure 134/66 121/75 12/14/18 07:53 12/14/18 08:30 12/14/18 09:15 Temperature Pulse Rate 90 Respiratory Rate 22 20 20 Blood Pressure 138/83 12/14/18 09:38 12/14/18 10:11 12/14/18 11:15 Temperature Pulse Rate 83 83 Respiratory Rate 10 L 20 18 Blood Pressure 128/67 121/70 12/14/18 12:10 12/14/18 12:13 12/14/18 13:10 Temperature 97.6 F Pulse Rate 88 91 H Respiratory Rate 18 18 Blood Pressure 122/67 135/74 12/14/18 13:26 12/14/18 13:30 12/14/18 13:40 Temperature Pulse Rate 105 H 99 H Respiratory Rate 22 Blood Pressure 126/82 121/81 12/14/18 13:46 12/14/18 14:00 12/14/18 14:01 Temperature 99.5 F Pulse Rate 88 88 Respiratory Rate Blood Pressure 104/62 98/51 L 12/14/18 14:15 12/14/18 14:35 12/14/18 15:28 Temperature 103.1 F H Pulse Rate 133 H 96 H 153 H Respiratory Rate 18 20 Blood Pressure 94/62 L 60/20 L 107/31 L Intake & Output 12/13/18 12/14/18 12/14/18 18:59 06:59 18:59 Intake Total 1000 / 1000 1000 / 1000 Balance 1000 / 1000 1000 / 1000 Weight 120.202 kg Intake: IV 1000 / 1000 1000 / 1000 LR 1000 mL Inj 1,000 ML @ 75 1000 / 1000 mls/hr [id number] Rx# :[id number] Magnesium Sulfate/Water 40 gm/ 1000 / 1000 1000 ml Premix 40 gm In 1,000 ml @ 2 GM/HR 50 mls/hr IV.CONT Q24H [facility] Rx#:[id number] Other: Weight On Admission 120.202 kg Results - Labs CBC & Chem 7: 12/13/18 12:00 12/13/18 12:00 Laboratory Results - last 24 hr 12/13/18 12/13/18 12/13/18 14:20 14:20 17:48 Magnesium Troponin I Nasal Screen MRSA (PCR) Not detected Rubella Immunity Screen Immune Rubella Ab, Quant 305.6 Group B Strep (PCR) Negative 12/14/18 12/14/18 07:45 09:15 Magnesium 5.4 H Troponin I Less than 0.02 L Nasal Screen MRSA (PCR) Rubella Immunity Screen Rubella Ab, Quant Group B Strep (PCR) Microbiology 12/13/18 14:20 Genital - Genital Region Group B Streptococcus Screen (ELAN) - Preliminary Results Pending
[2018-12-14] MEDS ORDERED: Lidocaine 2%/Epinephrine 1:200,000 PF 10 ML SDV NERV BLOCK ONE (16:14)
[2018-12-14] MEDS ORDERED: Normosol-R pH 7.4 Inj 1,000 ML IV.CONT ONE (16:14)
[2018-12-14] MEDS ORDERED: Carboprost Tromethamine Inj 250 MCG/ML Ampul IM ONE (16:24)
[2018-12-14] MEDS ORDERED: miSOPROStol 200 MCG Tablet ONE ×2 (16:24→16:33)
[2018-12-14] MEDS: GENTAMICIN IV.SIG SCH (16:30)
[2018-12-14] MEDS: SODIUM CHLOR 0.9% IV.SIG SCH (16:30)
[2018-12-14] MEDS ORDERED: ceFAZolin 1 GM Premix Inj 1 GM/50 ML PIGGYBACK IV.SIG ONE (16:46)
[2018-12-14 16:54] LABS: Cord Arterial Blood HCO3 22.7
[2018-12-14] MEDS ORDERED: Oxytocin 30 Units/500ml Premix 30 UNITS/500 ML BAG ONE (17:06)
[2018-12-14] MEDS ORDERED: Oxytocin 30 Units/500ml Premix 30 UNITS/500 ML BAG IV.CONT PRN (17:26)
[2018-12-14] MEDS ORDERED: Witch Hazel 50%/Glyderin 12.5% 40 Pad Jar RECTAL PRN (17:26)
[2018-12-14] MEDS ORDERED: Bisacodyl 10 MG Supp RECTAL PRN (17:26)
[2018-12-14] MEDS ORDERED: Acetaminophen 325 MG Tablet PO PRN (17:26)
[2018-12-14] MEDS ORDERED: Zolpidem Tartrate 5 MG Tablet PO PRN (17:26)
[2018-12-14] MEDS ORDERED: Naloxone Inj 0.4 MG/ML Vial IV.PUSH PRN ×2 (17:26→23:43)
[2018-12-14] MEDS ORDERED: Benzocaine 20% Top Spray 60 ML Can TOPICAL PRN (17:26)
[2018-12-14] MEDS ORDERED: Oxytocin 30 Units/500ml Premix 30 UNITS/500 ML BAG IV.SIG ONE (17:32)
[2018-12-14] MEDS ORDERED: miSOPROStol 200 MCG Tablet RECTAL ONE (17:32)
[2018-12-14] MEDS ORDERED: Tranexamic Acid Inj 1,000 MG in Sodium Chlor 0.9% Inj 100 ML IV.SIG ONE (17:32)
[2018-12-14] MEDS ORDERED: miSOPROStol 200 MCG Tablet PO ONE (17:32)
--- NOTE | 2018-12-14 17:58 | P.OBDELI ---
Procedure Note Performed by: Dr Anastacia Lees MD Procedure: Primary Low Transverse Section Indication for Delivery: Nonreassuring heart tracing, Maternal medical problems, Other (chorioamnionitis) Informed Consent Obtained: For anesthesia Confirmed Correct: Patient, Procedure, Site, Time-out taken Anesthesia: Epidural Medication Prior to Procedure: Antacids (pepcid), Antibiotics, IV (Penicillin G IV, Gentamicin), Antiemetics (Zofran), Magnesium Sulfate, Other (TXA) Monitoring During Procedure: Blood pressure monitoring, doppler, monitor, Pulse oximetry Urinary Catheter: Inserted using sterile technique Sterile Preparation: In usual fashion, Other (chloraprep) Position: Supine - Operative Features Skin Incision: Pfannenstiel Uterine Incision: Low transverse w/knife / blunt ext Membranes Ruptured: Artificially (12/13/18 @ 14:30hrs) Presentation: Vertex Status of Infant: Viable, Cord blood (sent for blood gas), Nursery present Placenta Delivered: Intact Medications: Antibiotics (Ancef 3 mg and Clindamycin 900 mg IV), Oxytocin ( after placenta was delivered), Prostaglandins (cytotec 800 mg per rectum) Estimated blood loss (mL): 750 Procedure Tolerated: Well Maternal Condition: Stable Baby Condition: Stable Procedure in Detail: 28 YO obese at 38.3 weeks was admitted for pre-eclampsia with elevated BPs on 12/13/18. Pt was on Mag sulfate for >24 hours and AROM performed 12/13 at 14: 30. Pt failed to progress in labor beyond 3-4/70/-2 and Penicillin G was administered this morning. Early this afternoon, mother became tachycardic, fetus became tachycardic, and mother spiked a fever of 103.5. Pre-operative Gentamicin and TXA were administered. Pt was prepped and taken to the OR for urgent . Ancef 3 g IV and Clindamycin 900 mg IV were administered rishi- operatively. Dr Lees performed performed primary on pt. Please see associated operative report. EBL 750cc. Mother tolerated procedure well and was administered cytotec 800 mg per rectum due to multiple risk factors for hemorrhage. Baby APGARs were 9/9. - Infant Infant: Female Female A Infant Delivery Date: 12/14/18 Infant Delivery Time: 16:30 Weight: 3.555 kg Delivery of Infant: Uneventful score (1 min): 9 score (5 min): 9
[2018-12-14] MEDS ORDERED: Clindamycin 900 mg/NS Premix 900 MG/50 ML PIGGYBACK IV.SIG SCH (18:00)
--- NOTE | 2018-12-14 18:08 | ECG ---
Date Performed: 12/14/2018 Time Performed: 10:23:22 PTAGE: 28 years EKG: Sinus rhythm NORMAL ECG PREVIOUS TRACING : 04/16/2017 14.31 Since the previous tracing, no significant change noted DOCTOR: Gianna Cox Interpretating Date/Time 12/14/2018 18:07:14
--- NOTE | 2018-12-14 23:41 | MP ---
cc: Anastacia Lees MD DATE OF OPERATION: 12/14/2018 PREOPERATIVE DIAGNOSES: 1. Intrauterine at 38 weeks and 3 days. 2. Obesity. 3. Preeclampsia. 4. Arrest of dilation/failure to progress. 5. Chorioamnionitis. 6. History of hemorrhage. POSTOPERATIVE DIAGNOSES: 1. Intrauterine at 38 weeks and 3 days. 2. Obesity. 3. Preeclampsia. 4. Arrest of dilation/failure to progress. 5. Chorioamnionitis. 6. History of hemorrhage. PROCEDURES PERFORMED: 1. Primary low transverse section with 2-layer closure and no extensions via Pfannenstiel skin incision. 2. Placement of Kristian self-containing wound retractor. 3. Administration of tranexamic acid. 4. Placement of silver-impregnated dressing. 5. Intra-abdominal antibiotic irrigation. DESCRIPTION OF FINDINGS: A viable female infant in cephalic presentation with Apgars 9 and 9, weighing 3,555 grams and delivered at 1630. The patient had grossly normal maternal anatomy. Cord pH was 7.307. ATTENDING SURGEON: Dr. Anastacia Lees. ASSISTANTS: Daniella Zhang. SPECIMENS SUBMITTED: Placenta. ESTIMATED BLOOD LOSS: 750 mL URINE OUTPUT: 100 mL clear urine at the end of the procedure. IV FLUIDS: Lactated Ringers: 1000 mL. INDICATIONS: The patient is a 28-year-old G3, P2-0-0-2, who was admitted at 38 weeks and 2 days for induction of labor for preeclampsia. She was placed on magnesium sulfate and induction of labor initiated with AROM and oxytocin. The oxytocin was discontinued during the night for a rest and restarted. The patient subsequently developed chorioamnionitis with a temperature of 103.1 and was placed on antibiotics. She had also failed to progress any further than 3-4 despite a prolonged time at this exam and adequate contractions. DESCRIPTION OF PROCEDURE: After obtaining informed consent, the patient was taken to the operating room where she was placed in the dorsal supine position. IV fluids were running. Her epidural had previously been redosed and a Peacock catheter was already in place. heart tones were confirmed to be reassuring and she was prepped and draped in normal sterile fashion. After confirming adequate anesthesia, a timeout procedure was performed. Adequate anesthesia was once again confirmed and a Pfannenstiel skin incision made with the scalpel. This incision was carried down to the level of fascia with the Bovie cautery and the fascia nicked in the midline with the Bovie cautery. The fascial incision was extended laterally with the curved Larios scissors. The Doug clamps were applied to the superior aspect of the fascial incision. It was dissected off the underlying rectus muscles bluntly and with sharp dissection with the curved Larios scissors. The Doug clamps were applied to the inferior aspect of the fascial incision, which was dissected off in a similar fashion. The rectus muscles were in the midline and the peritoneum entered bluntly. Peritoneal incision was extended bluntly and the Kristian self-containing wound retractor was placed. The vesicouterine peritoneum was identified, grasped with the pickups, and entered sharply with the Metzenbaum scissors. The bladder flap was created digitally. Lower uterine segment was incised with the scalpel and the hysterotomy created bluntly. The hysterotomy was extended bluntly. The vertex was elevated to the level of the hysterotomy and delivered atraumatically followed by atraumatic delivery of the remainder of the . The was initially vigorous, but appeared to require additional stimulation, so the cord was doubly clamped and cut after 30 seconds' delay. The was taken to the warmer and proceeded to transition well. A segment was obtained for cord pH and cord blood was obtained for the nursery. The placenta was removed manually, and the uterus cleared of all clots and debris. The hysterotomy was repaired with a #1 chromic in a running locked fashion. A second layer of the same suture was used in an imbricating fashion, after which excellent hemostasis was noted. The abdomen was irrigated with a dilute antibiotic solution with Ancef and the hysterotomy once again inspected and noted to be hemostatic. The peritoneum was reapproximated with 2-0 Vicryl. The rectus muscles were irrigated with a dilute antibiotic solution and noted to be hemostatic. The fascia was reapproximated with number 1 Vicryl in a running fashion. The subcutaneous tissue was irrigated with a dilute antibiotic solution and the fascial closure noted to be intact with no defects. The subcutaneous tissue was noted to be hemostatic. The subcutaneous tissue was reapproximated with 2-0 Vicryl. The skin edges were reapproximated with 3-0 Monocryl, with excellent hemostasis and cosmesis noted. A silver-impregnated dressing was placed. All sponge, lap, and needle counts were correct x2. I performed the entire procedure. MD RITA Daigle/phyllis , 10:12 PM , 10:21 PM
[2018-12-15] MEDS: Famotidine PF Inj 20 MG/2 ML Vial IV.SIG SCH ×3 (00:58→21:32)
[2018-12-15] MEDS: Senna/Docusate Sodium 8.6/50 MG Tablet PO SCH ×3 (00:58→21:31)
[2018-12-15] MEDS: Clindamycin 900 mg/NS Premix 900 MG/50 ML PIGGYBACK IV.SIG SCH ×3 (02:45→18:15)
[2018-12-15] MEDS: Mag Sulf/Water 40 gm/1000 ml 40 GM/1,000 ML BAG IV.CONT SCH ×3 (07:34→15:16)
[2018-12-15] MEDS: Prenatal Vit/Ca/Iron/Folic Acid Tablet PO SCH (09:06)
--- NOTE | 2018-12-15 09:45 | P.PNOB ---
Subjective Interval history: Postoperative day #1 AFVSS overnight. Incision not draining. Decreased lochia. Denies dysuria. No breast tenderness. Appetite good. No nausea or vomiting. Ambulating well. Denies calf pain or shortness of breath. Otherwise, she is doing well this morning and has no other complaints. Objective Vital Signs/I&O: Vital Signs 12/14/18 10:11 12/14/18 11:15 12/14/18 12:10 Temperature Pulse Rate 83 83 88 Respiratory Rate 20 18 Blood Pressure 128/67 121/70 122/67 12/14/18 12:13 12/14/18 13:10 12/14/18 13:26 Temperature 97.6 F Pulse Rate 91 H 105 H Respiratory Rate 18 18 Blood Pressure 135/74 126/82 12/14/18 13:30 12/14/18 13:40 12/14/18 13:46 Temperature Pulse Rate 99 H 88 Respiratory Rate 22 Blood Pressure 121/81 104/62 12/14/18 14:00 12/14/18 14:01 12/14/18 14:15 Temperature 99.5 F Pulse Rate 88 133 H Respiratory Rate 18 Blood Pressure 98/51 L 94/62 L 12/14/18 14:35 12/14/18 15:28 12/14/18 15:40 Temperature 103.1 F H Pulse Rate 96 H 153 H 146 H Respiratory Rate 20 Blood Pressure 60/20 L 107/31 L 127/65 12/14/18 15:45 12/14/18 17:30 12/14/18 17:45 Temperature 100.8 F H Pulse Rate 115 H 104 H Respiratory Rate 20 20 18 Blood Pressure 105/54 L 102/56 L 12/14/18 18:00 12/14/18 18:15 12/14/18 18:30 Temperature 100.0 F H Pulse Rate 107 H 104 H 109 H Respiratory Rate 18 18 18 Blood Pressure 104/55 L 105/61 109/66 12/14/18 18:59 12/14/18 19:47 12/14/18 20:55 Temperature 99.1 F Pulse Rate 110 H 105 H Respiratory Rate 18 18 Blood Pressure 110/69 110/78 12/14/18 21:55 12/14/18 22:35 12/14/18 23:00 Temperature Pulse Rate 105 H 101 H 98 H Respiratory Rate 18 Blood Pressure 111/65 112/66 115/75 12/15/18 00:00 12/15/18 00:08 12/15/18 01:01 Temperature Pulse Rate 86 87 Respiratory Rate 18 Blood Pressure 109/70 104/54 L 12/15/18 02:00 12/15/18 02:01 12/15/18 03:00 Temperature 98.9 F Pulse Rate 88 Respiratory Rate 18 18 Blood Pressure 103/56 L 12/15/18 03:01 12/15/18 04:00 12/15/18 04:01 Temperature Pulse Rate 84 88 Respiratory Rate 18 Blood Pressure 105/58 L 108/53 L 12/15/18 05:06 12/15/18 06:37 12/15/18 06:40 Temperature 98.7 F Pulse Rate 91 H 100 H 92 H Respiratory Rate 18 18 Blood Pressure 98/51 L 94/46 L 12/15/18 06:45 12/15/18 07:35 12/15/18 07:36 Temperature 98.3 F Pulse Rate 90 94 H Respiratory Rate 18 Blood Pressure 94/55 L 12/15/18 08:57 12/15/18 09:15 Temperature Pulse Rate 92 H Respiratory Rate 18 18 Blood Pressure 103/53 L Intake & Output 12/14/18 12/15/18 12/15/18 18:59 06:59 18:59 Intake Total 2099 / 2099 1000 / 1000 Balance 2100 / 2099 1000 / 1000 Intake: IV 2099 / 2099 1000 / 1000 LR 1000 mL Inj 1,000 ML @ 75 1000 / 1000 mls/hr IV.CONT .[id number] [facility] Rx# :[id number] Magnesium Sulfate/Water 40 gm/ 1000 / 1000 1000 / 1000 1000 ml Premix 40 gm In 1,000 ml @ 2 GM/HR 50 mls/hr IV.CONT Q24H [facility] Rx#:[id number] Result Diagrams: 12/13/18 12:00 12/13/18 12:00 Objective Remarks: GENERAL: Well-nourished, well-developed patient. CARDIOVASCULAR: Regular rate and rhythm without murmurs, gallops, or rubs. RESPIRATORY: Breath sounds equal bilaterally. No accessory muscle use. ABDOMEN/GI: Abdomen soft, non-tender, bowel sounds present. Incision: Clean, dry and intact. Fundus: Firm, non-tender at umbilicus. GENITOURINARY: Light to moderate bleeding. EXTREMITIES: No cyanosis or edema, non-tender, without signs of DVT. Medications and IVs: Active Medications Acetaminophen (Tylenol) 650 mg PO Q4H PRN PRN Reason: PAIN SCALE 1 TO 2 Al Hydroxide/Mg Hydroxide (Milk Of Magnesia Liq) 30 ml PO Q12H PRN PRN Reason: Mild Constipation Ampicillin Sodium (Ampicillin Inj) 2,000 mg IV.PUSH Q6H [facility]; Protocol Last Admin: 12/15/18 06:35 Dose: 2,000 mg Benzocaine (Americaine 20% Top [place]) 1 spray TOPICAL Q4H PRN PRN Reason: For Perineum Discomfort Bisacodyl (Dulcolax Supp) 10 mg RECTAL DAILY PRN PRN Reason: SEVERE CONSITIPATION Calcium Gluconate (Calcium Gluconate Inj) 1 gm IV.PUSH PRN PRN PRN Reason: Magnesium toxicity Citric Acid/Sodium Citrate (Sodium Citrate/Citric Acid Liq) 30 ml PO BACTERIOLOGY RESEARCH [facility]IST[facility] Stop: 12/18/18 15:44 Diphenhydramine HCl (Benadryl Inj) 25 mg IV.PUSH Q6H PRN PRN Reason: MILD TO MODERATE ITCHING Stop: 12/15/18 23:42 Diphenhydramine HCl (Benadryl) 50 mg PO Q6H PRN PRN Reason: MILD TO MODERATE ITCHING Stop: 12/15/18 23:42 Ephedrine Sulfate (Ephedrine/Ns Syringe) 10 mg IV.PUSH UNSCH PRN PRN Reason: SEE LABEL COMMENTS Stop: 12/15/18 15:36 Last Admin: 12/14/18 17:57 Dose: 10 mg Famotidine (Pepcid Pf Inj) 20 mg IV.SIG Q12HR [facility] Last Admin: 12/15/18 09:07 Dose: Not Given Magnesium Sulfate (Magnesium Sulfate/Water 40 Gm/1000 Ml Premix) 40 gm in 1, 000 mls @ 50 mls/hr IV.CONT Q24H [facility] Last Admin: 12/15/18 08:50 Dose: 2 gm/hr, 50 mls/hr Oxytocin (Pitocin 30 Units/Ns 500 Ml Premix) 30 units in 500 mls @ 2 mls/hr IV.SIG TITRATE PRN; Protocol PRN Reason: For induction of labor Last Admin: 12/13/18 19:56 Dose: 2 milliunit/min, 2 mls/hr Fentanyl/Bupivacaine/Sodium Chlor (Fentanyl 2 Mcg-Bupiv 0.125% Epi) 150 mls @ 12 mls/hr EPIDURAL PRN PRN PRN Reason: for Labor Pain Last Admin: 12/15/18 07:30 Dose: 12 mls/hr Gentamicin Sulfate 410 mg/ (Sodium Chloride) 110.25 mls @ 110.25 mls/hr IV.SIG Q24H [facility] Last Admin: 12/14/18 16:30 Dose: 110.25 mls/hr Cefazolin Sodium 3,000 mg/ (Sodium Chloride) 130 mls @ 200 mls/hr IV.SIG [facility]IOLOGY [facility] Stop: 12/18/18 15:59 Last Admin: 12/14/18 17:59 Dose: 200 mls/hr Oxytocin (Pitocin 30 Units/Ns 500 Ml Premix) 30 units in 500 mls @ 100 mls/hr IV.CONT UNSCH PRN PRN Reason: Heavy bleeding Clindamycin/Sodium Chloride (Cleocin 900 Mg/Ns Premix) 900 mg in 50 mls @ 100 mls/hr IV.SIG Q8H [facility] Last Admin: 12/15/18 02:45 Dose: 100 mls/hr Lactated Ringer's (Lr 1000 Ml Inj) 1,000 mls @ 75 mls/hr IV.SIG .[id number] [facility] Last Admin: 12/15/18 09:07 Dose: Not Given Ibuprofen (Motrin) 800 mg PO Q8H PRN PRN Reason: For Cramping Last Admin: 12/15/18 05:17 Dose: 800 mg Lactulose (Lactulose Liq) 30 ml PO DAILY PRN PRN Reason: SEVERE CONSITIPATION Miscellaneous Information (Misc Information) 1 each OTHER UNSCH PRN PRN Reason: SEE LABEL COMMENTS Stop: 12/15/18 15:36 Miscellaneous Information (Misc Information) 1 each OTHER UNSCH PRN PRN Reason: SEE LABEL COMMENTS Stop: 12/15/18 15:36 Miscellaneous Information (Misc Nursing Information) 1 each OTHER UNSCH PRN PRN Reason: SEE LABEL COMMENTS Stop: 12/15/18 23:42 Miscellaneous Information (Misc Nursing Information) 1 each OTHER UNSCH PRN PRN Reason: SEE LABEL COMMENTS Stop: 12/15/18 23:42 Naloxone HCl (Narcan Inj) 0.1 mg IV.PUSH Q2M PRN PRN Reason: for opiate reversal Naloxone HCl (Narcan Inj) 0.4 mg IV.PUSH UNSCH PRN PRN Reason: SEE LABEL COMMENTS Stop: 12/15/18 23:42 Ondansetron HCl (Zofran Inj) 4 mg IV.PUSH Q6H PRN PRN Reason: NAUSEA OR VOMITING Last Admin: 12/14/18 07:33 Dose: 4 mg Ondansetron HCl (Zofran Odt) 4 mg PO Q6H PRN PRN Reason: NAUSEA OR VOMITING Oxycodone/Acetaminophen (Percocet 5/325 Mg) 1 tab PO Q4H PRN PRN Reason: PAIN SCALE 3 TO 5 Last Admin: 12/15/18 09:06 Dose: 1 tab Oxycodone/Acetaminophen (Percocet 5/325 Mg) 2 tab PO Q4H PRN PRN Reason: PAIN SCALE 6 TO 10 Last Admin: 12/15/18 05:17 Dose: 2 tab Vit/Calcium/Iron/Folic Ac (Stuartnatal Plus 3) 1 tab PO DAILY [facility] Last Admin: 12/15/18 09:06 Dose: 1 tab Senna/Docusate Sodium (Nettie-Colace) 1 tab PO BID [facility] Last Admin: 12/15/18 09:06 Dose: 1 tab Sennosides (Senokot) 17.2 mg PO Q12H PRN PRN Reason: Moderate Constipation Sodium Chloride (Ns Flush) 2 ml IV.FLUSH BID [facility] Last Admin: 12/15/18 09:07 Dose: Not Given Sodium Chloride (Ns Flush) 2 ml IV.FLUSH PRN PRN PRN Reason: FLUSH AFTER USING IV ACCESS Witch Ashley/Glycerin (Tucks Pads) 1 applicatio RECTAL QID PRN PRN Reason: HEMORRHOIDS Zolpidem Tartrate (Ambien) 5 mg PO HS PRN PRN Reason: SLEEP Assessment and Plan - Diagnosis (1) Elevated blood pressure affecting in third trimester, antepartum Code(s): O16.3 - Unspecified maternal hypertension, third trimester Status: Acute (2) Vision blurred Code(s): H53.8 - Other visual disturbances Status: Acute (3) Abdominal pain Code(s): R10.9 - Unspecified abdominal pain Status: Acute (4) Nausea Code(s): R11.0 - Nausea Status: Acute (5) Lower extremity edema Code(s): R60.0 - Localized edema Status: Acute - Plan 28y/o female who is POD#1 s/p CXN. Previously presented with preeclampsia, prolonged rupture membranes, chorioamnionitis. -Continue routine care. -Percocet and Motrin PRN pain. -Encouraged OOB. Advised pelvic rest for 6 wks. Will need a f/u appt. in 1 wk for incision check. -Re: ctrl, she would like to follow-up with outpatient OB. -D/c in 1-[email or web address] Lees, Dr. Matson
[2018-12-15 09:49] LABS: Baso % (Auto) 0.1 % (0.0-2.0); Eos % (Auto) 0.1 % (0.0-4.0); Hematocrit 29.1 % (35.0-46.0); Hemoglobin 9.6 gm/dL (11.6-15.3); Lymph % (Auto) 5.3 % (9.0-44.0); Mean Corpuscular HGB Conc 33.2 % (32.0-36.0); Mean Corpuscular Hemoglobin 28.6 pg (27.0-34.0); Mean Corpuscular Volume 86.2 fL (80.0-100.0); Mean Platelet Volume 7.3 fL (7.0-11.0); Mono # (Auto) 0.6 th/mm3 (0.0-0.9); Mono % (Auto) 3.4 % (0.0-8.0); Neut # (Auto) 16.9 th/mm3 (1.8-7.7); Neut % (Auto) 91.1 % (16.0-70.0); Platelet Count 287 th/mm3 (150-450); Red Blood Count 3.37 mil/mm3 (4.00-5.30); Red Cell Distribution Width 13.3 % (11.6-17.2); White Blood Count 18.6 th/mm3 (4.0-11.0)
[2018-12-15 14:26] VITALS: RESP 18
[2018-12-15] MEDS: SODIUM CHLOR 0.9% IV.SIG SCH (16:05)
[2018-12-15] MEDS: GENTAMICIN IV.SIG SCH (16:05)
[2018-12-16] MEDS: Famotidine PF Inj 20 MG/2 ML Vial IV.SIG SCH (00:49)
[2018-12-16] MEDS: Clindamycin 900 mg/NS Premix 900 MG/50 ML PIGGYBACK IV.SIG SCH (02:04)
--- NOTE | 2018-12-16 07:49 | P.PNOB ---
Subjective Post op day: 2 Interval history: Ms. Nuñez is a 28-year-old who delivered via urgent at 38.3 weeks due to chorioamnionitis, preeclampsia, prolonged rupture of membranes and arrest of labor. She is POD #2 and has been off Mag sulfate since 4:00 PM yesterday. She is still being given IV antibiotics. She had no acute events overnight. Pain is controlled on Percocet as needed but still has some tenderness at the right portion of her incision, she is ambulating, taking p.o. , voiding, and flatus but no BM yet. Lochia is reducing. She is bottle feeding only. Vital signs are stable except for hypotension overnight that appears normalized this morning. She is not dizzy or lightheaded. Denies chest pain, shortness of breath, nausea, vomiting, diarrhea, fever, chills, leg pain. Objective Vital Signs/I&O: Vital Signs 12/15/18 08:57 12/15/18 09:15 12/15/18 10:01 Temperature Pulse Rate 92 H 90 Respiratory Rate 18 18 Blood Pressure 103/53 L 102/67 12/15/18 10:16 12/15/18 10:55 12/15/18 11:05 Temperature Pulse Rate 86 79 Respiratory Rate 18 Blood Pressure 103/53 L 12/15/18 12:00 12/15/18 12:13 12/15/18 12:20 Temperature 98.1 F Pulse Rate 86 97 H 88 Respiratory Rate 18 16 Blood Pressure 91/56 L 12/15/18 12:25 12/15/18 13:08 12/15/18 13:45 Temperature Pulse Rate 101 H 95 H 102 H Respiratory Rate 16 Blood Pressure 94/76 L 99/54 L 12/15/18 14:00 12/15/18 15:12 12/15/18 15:20 Temperature Pulse Rate 109 H 110 H Respiratory Rate 18 18 Blood Pressure 98/53 L 12/15/18 16:00 12/15/18 16:11 12/15/18 16:30 Temperature Pulse Rate 97 H 102 H 102 H Respiratory Rate 18 Blood Pressure 101/54 L 106/58 L 12/15/18 16:31 12/15/18 17:00 12/15/18 20:00 Temperature 98.4 F 98.0 F Pulse Rate 106 H 102 H Respiratory Rate 18 18 Blood Pressure 113/68 108/66 12/16/18 00:00 12/16/18 04:00 Temperature 98.4 F 97.6 F Pulse Rate 87 86 Respiratory Rate 18 18 Blood Pressure 92/61 L 94/55 L Intake & Output 12/15/18 12/16/18 12/16/18 18:59 06:59 18:59 Intake Total 100 / 100 Output Total 450 / 450 Balance 100 / 100 -450 / -450 Intake: IV 100 / 100 Cleocin 900 mg/NS Premix 900 mg 100 / 100 In 50 ml @ 100 mls/hr IV.SIG Q8H [facility] Rx#:[id number] Output: Urine 450 / 450 Other: # Voids 1 Result Diagrams: 12/15/18 09:06 12/13/18 12:00 Objective Remarks: GENERAL: Well-nourished, obese patient. CARDIOVASCULAR: Regular rate and rhythm without murmurs, gallops, or rubs. RESPIRATORY: Breath sounds equal bilaterally. No accessory muscle use. ABDOMEN/GI: Abdomen soft, mildly tender on RLQ, bowel sounds present. Incision: Clean, dry and intact with silver dressing in place. Fundus: Firm, non-tender at umbilicus. GENITOURINARY: Light to moderate bleeding. EXTREMITIES: No cyanosis or edema, non-tender, without signs of DVT. Medications and IVs: Active Medications Acetaminophen (Tylenol) 650 mg PO Q4H PRN PRN Reason: PAIN SCALE 1 TO 2 Al Hydroxide/Mg Hydroxide (Milk Of Magnesia Liq) 30 ml PO Q12H PRN PRN Reason: Mild Constipation Ampicillin Sodium (Ampicillin Inj) 2,000 mg IV.PUSH Q6H [facility]; Protocol Last Admin: 12/16/18 06:14 Dose: 2,000 mg Benzocaine (Americaine 20% Top [place]) 1 spray TOPICAL Q4H PRN PRN Reason: For Perineum Discomfort Bisacodyl (Dulcolax Supp) 10 mg RECTAL DAILY PRN PRN Reason: SEVERE CONSITIPATION Calcium Gluconate (Calcium Gluconate Inj) 1 gm IV.PUSH PRN PRN PRN Reason: Magnesium toxicity Citric Acid/Sodium Citrate (Sodium Citrate/Citric Acid Liq) 30 ml PO BUDGET COORDINATOR [facility] Stop: 12/18/18 15:44 Famotidine (Pepcid Pf Inj) 20 mg IV.SIG Q12HR [facility] Last Admin: 12/16/18 00:49 Dose: 20 mg Magnesium Sulfate (Magnesium Sulfate/Water 40 Gm/1000 Ml Premix) 40 gm in 1, 000 mls @ 50 mls/hr IV.CONT Q24H [facility] Last Admin: 12/15/18 15:16 Dose: Not Given Oxytocin (Pitocin 30 Units/Ns 500 Ml Premix) 30 units in 500 mls @ 2 mls/hr IV.SIG TITRATE PRN; Protocol PRN Reason: For induction of labor Last Admin: 12/13/18 19:56 Dose: 2 milliunit/min, 2 mls/hr Fentanyl/Bupivacaine/Sodium Chlor (Fentanyl 2 Mcg-Bupiv 0.125% Epi) 150 mls @ 12 mls/hr EPIDURAL PRN PRN PRN Reason: for Labor Pain Last Admin: 12/15/18 07:30 Dose: 12 mls/hr Gentamicin Sulfate 410 mg/ (Sodium Chloride) 110.25 mls @ 110.25 mls/hr IV.SIG Q24H [facility] Last Admin: 12/15/18 16:05 Dose: 110.25 mls/hr Cefazolin Sodium 3,000 mg/ (Sodium Chloride) 130 mls @ 200 mls/hr IV.SIG BUDGET COORDINATOR [facility] Stop: 12/18/18 15:59 Last Admin: 12/14/18 17:59 Dose: 200 mls/hr Oxytocin (Pitocin 30 Units/Ns 500 Ml Premix) 30 units in 500 mls @ 100 mls/hr IV.CONT UNSCH PRN PRN Reason: Heavy bleeding Clindamycin/Sodium Chloride (Cleocin 900 Mg/Ns Premix) 900 mg in 50 mls @ 100 mls/hr IV.SIG Q8H [facility] Last Admin: 12/16/18 02:04 Dose: 100 mls/hr Lactated Ringer's (Lr 1000 Ml Inj) 1,000 mls @ 75 mls/hr IV.SIG .[id number] [facility] Last Admin: 12/15/18 23:37 Dose: Not Given Ibuprofen (Motrin) 800 mg PO Q8H PRN PRN Reason: For Cramping Last Admin: 12/16/18 06:13 Dose: 800 mg Lactulose (Lactulose Liq) 30 ml PO DAILY PRN PRN Reason: SEVERE CONSITIPATION Naloxone HCl (Narcan Inj) 0.1 mg IV.PUSH Q2M PRN PRN Reason: for opiate reversal Ondansetron HCl (Zofran Inj) 4 mg IV.PUSH Q6H PRN PRN Reason: NAUSEA OR VOMITING Last Admin: 12/14/18 07:33 Dose: 4 mg Ondansetron HCl (Zofran Odt) 4 mg PO Q6H PRN PRN Reason: NAUSEA OR VOMITING Oxycodone/Acetaminophen (Percocet 5/325 Mg) 1 tab PO Q4H PRN PRN Reason: PAIN SCALE 3 TO 5 Last Admin: 12/15/18 13:02 Dose: 1 tab Oxycodone/Acetaminophen (Percocet 5/325 Mg) 2 tab PO Q4H PRN PRN Reason: PAIN SCALE 6 TO 10 Last Admin: 12/16/18 06:13 Dose: 2 tab Vit/Calcium/Iron/Folic Ac (Stuartnatal Plus 3) 1 tab PO DAILY [facility] Last Admin: 12/15/18 09:06 Dose: 1 tab Senna/Docusate Sodium (Nettie-Colace) 1 tab PO BID [facility] Last Admin: 12/15/18 21:31 Dose: 1 tab Sennosides (Senokot) 17.2 mg PO Q12H PRN PRN Reason: Moderate Constipation Sodium Chloride (Ns Flush) 2 ml IV.FLUSH BID [facility] Last Admin: 12/15/18 21:31 Dose: 2 ml Sodium Chloride (Ns Flush) 2 ml IV.FLUSH PRN PRN PRN Reason: FLUSH AFTER USING IV ACCESS Witch Ashley/Glycerin (Tucks Pads) 1 applicatio RECTAL QID PRN PRN Reason: HEMORRHOIDS Zolpidem Tartrate (Ambien) 5 mg PO HS PRN PRN Reason: SLEEP Assessment and Plan - Diagnosis (1) Elevated blood pressure affecting in third trimester, antepartum Code(s): O16.3 - Unspecified maternal hypertension, third trimester Status: Acute (2) Vision blurred Code(s): H53.8 - Other visual disturbances Status: Acute (3) Abdominal pain Code(s): R10.9 - Unspecified abdominal pain Status: Acute (4) Nausea Code(s): R11.0 - Nausea Status: Acute (5) Lower extremity edema Code(s): R60.0 - Localized edema Status: Acute - Plan 28y/o female who is POD#2 s/p primary CXN. Previously presented with preeclampsia, prolonged rupture membranes, chorioamnionitis. She is s/p Mag sulfate since yesterday afternoon but still on IV antibiotics. -Continue routine care. -Antibiotics will be discontinued this morning -Percocet and Motrin PRN pain. -Encouraged OOB. Advised pelvic rest for 6 wks. Will schedule a f/u appt. in 1 wk for incision check. -Re: She plans a tubal ligation . I will refer her to DICE TABLE OPERATOR for surgery at 6-8 week post -D/c anticipated 12/17/[address] Iglesias
[2018-12-16] MEDS: Senna/Docusate Sodium 8.6/50 MG Tablet PO SCH ×2 (11:37→21:22)
[2018-12-16] MEDS: Prenatal Vit/Ca/Iron/Folic Acid Tablet PO SCH (11:37)
[2018-12-16] MEDS: Pantoprazole Sodium 20 MG DR Tablet PO SCH (11:37)
[2018-12-16] MEDS: Mag Sulf/Water 40 gm/1000 ml 40 GM/1,000 ML BAG IV.CONT SCH (13:15)
[2018-12-16] MEDS: Ferrous Sulfate 325 MG Tablet PO SCH ×2 (14:08→16:12)
--- NOTE | 2018-12-17 08:37 | P.PNOB ---
Subjective Post op day: 3 Interval history: Ms. Nuñez is a 28-year-old who is POD#3 and delivered via urgent C- section at 38.3 weeks due to chorioamnionitis, preeclampsia, prolonged rupture of membranes and arrest of labor. She had no acute events overnight. Pain is controlled on Percocet PRN, is ambulating, taking p.o., voiding, and flatus but no BM yet. Lochia is reducing. She is bottle feeding only. AFVSS with normalized BPs. She is not dizzy or lightheaded. Denies chest pain, shortness of breath, nausea, vomiting, diarrhea, fever, chills, leg pain. Objective Vital Signs/I&O: Vital Signs 12/16/18 16:10 12/16/18 20:00 12/16/18 23:47 Temperature 98.3 F 98.2 F 98.4 F Pulse Rate 67 69 104 H Respiratory Rate 18 18 18 Blood Pressure 108/67 124/55 L 112/73 12/17/18 04:00 Temperature 98.2 F Pulse Rate 75 Respiratory Rate 18 Blood Pressure 130/82 Result Diagrams: 12/15/18 09:06 12/13/18 12:00 Objective Remarks: GENERAL: Well-nourished, well-developed patient in NAD. CARDIOVASCULAR: Regular rate and rhythm without murmurs, gallops, or rubs. RESPIRATORY: Breath sounds equal bilaterally. No accessory muscle use. ABDOMEN/GI: Abdomen soft, non-tender, bowel sounds present. Incision: Clean, dry and intact with silver alginate dressing in place. Fundus: Firm, non-tender at umbilicus. GENITOURINARY: Light to moderate bleeding. EXTREMITIES: No cyanosis or edema, non-tender, without signs of DVT. Medications and IVs: Active Medications Acetaminophen (Tylenol) 650 mg PO Q4H PRN PRN Reason: PAIN SCALE 1 TO 2 Al Hydroxide/Mg Hydroxide (Milk Of Magnesia Liq) 30 ml PO Q12H PRN PRN Reason: Mild Constipation Last Admin: 12/16/18 21:25 Dose: 30 ml Benzocaine (Americaine 20% Top Left Hand) 1 spray TOPICAL Q4H PRN PRN Reason: For Perineum Discomfort Bisacodyl (Dulcolax Supp) 10 mg RECTAL DAILY PRN PRN Reason: SEVERE CONSITIPATION Calcium Gluconate (Calcium Gluconate Inj) 1 gm IV.PUSH PRN PRN PRN Reason: Magnesium toxicity Citric Acid/Sodium Citrate (Sodium Citrate/Citric Acid Liq) 30 ml PO CLINICAL STATISTICAL PROGRAMMER [facility] Stop: 12/18/18 15:44 Ferrous Sulfate (Ferosul) 325 mg PO BID@1200,1700 [facility] Last Admin: 12/16/18 16:12 Dose: 325 mg Magnesium Sulfate (Magnesium Sulfate/Water 40 Gm/1000 Ml Premix) 40 gm in 1, 000 mls @ 50 mls/hr IV.CONT Q24H [facility] Last Admin: 12/16/18 13:15 Dose: Not Given Oxytocin (Pitocin 30 Units/Ns 500 Ml Premix) 30 units in 500 mls @ 2 mls/hr IV.SIG TITRATE PRN; Protocol PRN Reason: For induction of labor Last Admin: 12/13/18 19:56 Dose: 2 milliunit/min, 2 mls/hr Fentanyl/Bupivacaine/Sodium Chlor (Fentanyl 2 Mcg-Bupiv 0.125% Epi) 150 mls @ 12 mls/hr EPIDURAL PRN PRN PRN Reason: for Labor Pain Last Admin: 12/15/18 07:30 Dose: 12 mls/hr Cefazolin Sodium 3,000 mg/ (Sodium Chloride) 130 mls @ 200 mls/hr IV.SIG CLINICAL STATISTICAL PROGRAMMER [facility] Stop: 12/18/18 15:59 Last Admin: 12/14/18 17:59 Dose: 200 mls/hr Oxytocin (Pitocin 30 Units/Ns 500 Ml Premix) 30 units in 500 mls @ 100 mls/hr IV.CONT UNSCH PRN PRN Reason: Heavy bleeding Lactated Ringer's (Lr 1000 Ml Inj) 1,000 mls @ 75 mls/hr IV.SIG .[id number] [facility] Last Admin: 12/17/18 07:40 Dose: Not Given Ibuprofen (Motrin) 800 mg PO Q8H PRN PRN Reason: For Cramping Last Admin: 12/17/18 04:50 Dose: 800 mg Lactulose (Lactulose Liq) 30 ml PO DAILY PRN PRN Reason: SEVERE CONSITIPATION Naloxone HCl (Narcan Inj) 0.1 mg IV.PUSH Q2M PRN PRN Reason: for opiate reversal Ondansetron HCl (Zofran Inj) 4 mg IV.PUSH Q6H PRN PRN Reason: NAUSEA OR VOMITING Last Admin: 12/14/18 07:33 Dose: 4 mg Ondansetron HCl (Zofran Odt) 4 mg PO Q6H PRN PRN Reason: NAUSEA OR VOMITING Oxycodone/Acetaminophen (Percocet 5/325 Mg) 1 tab PO Q4H PRN PRN Reason: PAIN SCALE 3 TO 5 Last Admin: 12/17/18 01:04 Dose: 1 tab Oxycodone/Acetaminophen (Percocet 5/325 Mg) 2 tab PO Q4H PRN PRN Reason: PAIN SCALE 6 TO 10 Last Admin: 12/17/18 04:49 Dose: 2 tab Pantoprazole Sodium (Protonix) 20 mg PO DAILY [facility] Last Admin: 12/16/18 11:37 Dose: 20 mg Vit/Calcium/Iron/Folic Ac (Stuartnatal Plus 3) 1 tab PO DAILY [facility] Last Admin: 12/16/18 11:37 Dose: 1 tab Senna/Docusate Sodium (Nettie-Colace) 1 tab PO BID [facility] Last Admin: 12/16/18 21:22 Dose: 1 tab Sennosides (Senokot) 17.2 mg PO Q12H PRN PRN Reason: Moderate Constipation Sodium Chloride (Ns Flush) 2 ml IV.FLUSH BID [facility] Last Admin: 12/16/18 21:22 Dose: Not Given Sodium Chloride (Ns Flush) 2 ml IV.FLUSH PRN PRN PRN Reason: FLUSH AFTER USING IV ACCESS Witch [place]/Glycerin (Tucks Pads) 1 applicatio RECTAL QID PRN PRN Reason: HEMORRHOIDS Zolpidem Tartrate (Ambien) 5 mg PO HS PRN PRN Reason: SLEEP Assessment and Plan - Diagnosis (1) Elevated blood pressure affecting in third trimester, antepartum Code(s): O16.3 - Unspecified maternal hypertension, third trimester Status: Acute (2) Vision blurred Code(s): H53.8 - Other visual disturbances Status: Resolved (3) Abdominal pain Code(s): R10.9 - Unspecified abdominal pain Status: Resolved (4) Nausea Code(s): R11.0 - Nausea Status: Resolved (5) Lower extremity edema Code(s): R60.0 - Localized edema Status: Acute - Plan [age]y/o s/p primary C/S, POD#3, admitted for Preeclampsia, prolonged rupture membranes, and chorioamnionitis. She is s/p Mag sulfate since 12/15. AFVSS with normal BP's since delivery. Pt is ready for discharge today. -Continue routine care. -Percocet and Motrin PRN pain. -Encouraged OOB. Advised pelvic rest for 6 wks. Will schedule a f/u appt. in 1 wk for incision check. -Re: She plans a tubal ligation . I will refer her to SCIENTIFIC AIDE for surgery at 6-8 week post -Continue Ferrous sulfate 325 mg PO BID -Continue Nettie-colace BID for constipation -Continue Ranitidine 150 mg BID for reflux DW Dr Haskins & Dr Elkins - Attending Attestation The exam, history, and the medical decision-making described in the above note were completed with the assistance of the resident physician. I reviewed and agree with the findings presented. I attest that I had a [id number] encounter with the patient on the same day, and personally performed and documented my assessment and findings in the medical record. s/p Primary LTCS, POD#3, Hgb 9.6 from 12 on FeSulfate, stable for D/C, F/U in 1wk for incision check.
[2018-12-17 08:39] VITALS: BP 134/88; PULSE 88; TEMP 97.7
[2018-12-17] MEDS: Senna/Docusate Sodium 8.6/50 MG Tablet PO SCH (08:53)
[2018-12-17] MEDS: Prenatal Vit/Ca/Iron/Folic Acid Tablet PO SCH (08:53)
[2018-12-17] MEDS: Pantoprazole Sodium 20 MG DR Tablet PO SCH (08:53)
== END 2018-12-17 11:38 | disposition home or self-care (01) | DRG 786 ==
LOC: HOBED 09:53 → H2E 12:03 → H1EA 12-15 17:16
PROVIDERS: ADMIT Family Medicine; ATTEND Family Medicine
CPT/HCPCS: 59025; 76816; 76819; 76820; 80053; 81001; 82570; 82805; 83735; 84155; 84157; 84484; 84550; 85025; 85027; 86762; 86850; 86900; 86901; 87081; 87150; 87641; 88307; 93005; 99285; J0131; J0290; J0690; J1100; J1580; J2060; J2274; J2405; J2540; J2590; J3010; J3105; J3475; J7120; Q0163